=== PATIENT | female | born 1960 | race Caucasian/White ===

== ENCOUNTER → 2016-05-02 | Outpatient (CLI) | payer MEDICARE, OTHER ==
--- NOTE | 2016-05-02 19:53 | PN ---
DATE OF SERVICE: 05/02/2016 This patient is a 56-year-old lady who has been followed in the sleep center for treatment of obstructive sleep apnea/hypopnea syndrome. Recently patient had a home sleep apnea test followed by a CPAP titration. I discussed results of the sleep studies with the patient in detail. She has moderate obstructive sleep apnea. At present she is on treatment with CPAP. She received her new CPAP unit. I checked her CPAP machine. Usage is 25 out of 30 nights for more than 4 hours. Average 4.7 hours per night. Apnea-hypopnea index reading from the machine is only 1.4 for the last month. Patient sleeps better; no snoring; feels better during the day. Greer Sleepiness Scale is 2. CPAP pressure is 15 cm of water. Patient is using RAMP. MEDICATIONS: 1. Clonazepam. 2. Ranitidine. 3. Levothyroxine. 4. Losartan. 5. Simvastatin. 6. Norvasc. 7. ( ) 8. Gabapentin. 9. Ibuprofen. 10. Fluticasone. 11. Vitamin D3. 12. Supplement. PHYSICAL EXAMINATION: Patient is in no distress. VITAL SIGNS: BP 121/68, HR 64, RR 16. Weight 247. Temperature 97.9. Oxygen saturation at room air 96%. HEENT: PERRLA, EOMI. Evaluation of oropharynx showed tongue protrudes midline; low position of soft palate. NECK: Supple. No JVD. Thyroid is not palpable. LUNGS: Clear to percussion and to auscultation. Good air exchange. No wheezing or rhonchi. HEART: S1, S2 regular. No murmurs, gallops or rubs. ABDOMEN: Slightly obese. EXTREMITIES: No clubbing or cyanosis. STAMP REDEMPTION CLERK: Awake, alert, and oriented x3. Cranial nerves 2 to 7 intact. There is no fasciculation or atrophy noted. No focal deficits observed. IMPRESSION: 1. Moderate obstructive sleep apnea-hypopnea syndrome. Apnea-hypopnea index 16.1 with oxygen desaturation to 68%, under control with CPAP at 15 cm of water. Patient has demonstrated good compliance with treatment and is benefiting from treatment. 2. Hypertension. 3. Hypothyroidism. 4. History of swelling of the legs. 5. Low back problems with degenerative disc disease. 6. History of stroke at age of 23. 7. History of seizure disorder; last episode many years ago. 8. Status post cholecystectomy. 9. Status post partial hysterectomy. 10. Seasonal allergies. 11. Status post left breast carcinoma treated by lumpectomy and local radiation therapy in 1998. PLAN: 1. Patient will continue to use her CPAP equipment every night for the whole night. 2. Watching and losing weight. 3. Sleep hygiene with regular time in bed for at least 8 hours. 4. No driving if feeling any sleepiness. 5. Prescription for all necessary CPAP supplies. 6. I will see the patient for follow-up visit in about one year since she had the sleep study, which will be in about 10 months. Thank you very much for allowing me to participate in the management your patient. Sincerely, Dionicio Marcos MD, PhD, FAASM. Diplomat of [place] [employer], Sleep Medicine Board by [place] [employer], [place] [employer]
== END | disposition home or self-care (01) ==
LOC: SLEEP 14:51
PROVIDERS: ATTEND Internal Medicine
DX: G47.33 Obstructive sleep apnea (adult) (pediatric) (principal); I10 Essential (primary) hypertension; E03.9 Hypothyroidism, unspecified; M79.89 Other specified soft tissue disorders; M51.36 Other intervertebral disc degeneration, lumbar region; Z86.73 Personal history of transient ischemic attack (TIA), and cerebral infarction without residual deficits; G40.909 Epilepsy, unspecified, not intractable, without status epilepticus; Z91.09 Other allergy status, other than to drugs and biological substances; Z85.3 Personal history of malignant neoplasm of breast; Z79.899 Other long term (current) drug therapy; Z98.890 Other specified postprocedural states

== ENCOUNTER → 2016-06-18 | Outpatient (CLI) | payer MEDICARE, OTHER ==
--- NOTE | 2016-06-18 19:23 | US ---
EXAMINATION TYPE: US carotid duplex BILAT DATE OF EXAM: 06/18/2016 5:21 PM COMPARISON: NONE CLINICAL HISTORY: Z86.73 Personal history of transient ischemic attack. EXAM MEASUREMENTS: RIGHT: Peak Systolic Velocity (PSV) cm/sec ----- Right CCA: 90.3 ----- Right ICA: 75.8 ----- Right ECA: 169.8 ICA/CCA ratio: 0.8 RIGHT: End Diastole cm/sec ----- Right CCA: 22.5 ----- Right ICA: 19.2 ----- Right ECA: 19.2 LEFT: Peak Systolic Velocity (PSV) cm/sec ----- Left CCA: 84.5 ----- Left ICA: 98.3 ----- Left ECA: 86.6 ICA/CCA ratio: 1.2 LEFT: End Diastole cm/sec ----- Left CCA: 15.6 ----- Left ICA: 27.4 ----- Left ECA: 10.2 VERTEBRALS (direction of flow): Right Vertebral: Antegrade Left Vertebral: Antegrade Minimal plaque visualized bilaterally, elevated velocity visualized in the right ECA IMPRESSION: There is antegrade flow in the vertebral arteries. There is elevated right external patricio tid artery velocity suggestive of more than 50% stenosis. Images and measurements suggest up to 50% s tenosis in both internal carotid arteries. Criteria for Assigning % of Stenosis / Diameter reduction (Estimation based on the indirect measurements of the internal carotid artery velocities (ICA PSV). 1. Normal (no stenosis)=ICA PSV < 125 cm/s: ratio < 2.0: ICA EDV<40 cm/s. 2. Less than 50% stenosis=ICA PSV < 125 cm/s: ratio < 2.0: ICA EDV<40 cm/s. 3. 50 to 69% stenosis=ICA PSV of 125 to 230 cm/s: ration 2.0 ? 4.0: ICA EDV 40-100 cm/s. 4. Greater than 70% stenosis to near occlusion= ICA PSV > 230 cm/s: ratio > 4.0: ICA EDV > 100 cm/s. 5. Near occlusion= ICA PSV velocities may be low or undetectable: variable ratio and ICA EDV. 6. Total occlusion=unable to detect flow.
== END | disposition home or self-care (01) ==
LOC: RADUSWWP 16:30
PROVIDERS: ATTEND Psychiatry & Neurology Neurology
DX: Z86.73 Personal history of transient ischemic attack (TIA), and cerebral infarction without residual deficits (principal)
CPT/HCPCS: 93880

== ENCOUNTER → 2017-02-07 | Outpatient (CLI) | payer MEDICARE, OTHER ==
--- NOTE | 2017-02-07 13:37 | MM ---
Reason for exam: screening (asymptomatic). Last mammogram was performed 1 year ago. History: Patient is postmenopausal, has history of breast cancer at age 38, and has history of endometrial cancer at age 24. Malignant lumpectomy of the left breast, December 12, 1998. Malignant ultrasound-guided core biopsy of the left breast, November 30, 1998. Chemotherapy. Radiation therapy of the left breast. Physical Findings: A clinical breast exam by your physician is recommended on an annual basis and results should be correlated with mammographic findings. MG 3D Screening Mammo W/Cad Bilateral CC and MLO view(s) were taken. Prior study comparison: January 29, 2016, bilateral MG 3d screening mammo w/cad. January 24, 2015, bilateral MG 3d diag mammo w/cad ROSE. The breast tissue is heterogeneously dense. This may lower the sensitivity of mammography. No suspicious abnormality. Post surgical therapy changes on the left breast. No significant changes when compared with prior studies. ASSESSMENT: Benign, BI-RAD 2 RECOMMENDATION: Routine screening mammogram of both breasts in 1 year.
== END | disposition home or self-care (01) ==
LOC: RADMAMWWP 07:38
PROVIDERS: ATTEND Family Medicine
DX: Z12.31 Encounter for screening mammogram for malignant neoplasm of breast (principal); Z80.3 Family history of malignant neoplasm of breast
CPT/HCPCS: 77063; G0202

== ENCOUNTER → 2017-05-29 | Outpatient (CLI) | payer MEDICARE, OTHER ==
--- NOTE | 2017-05-29 12:49 | SFUN ---
SLEEP CENTER FOLLOW UP NOTE DATE OF SERVICE: 05/29/2017 This 57-year-old lady had been followed in sleep center for treatment of obstructive sleep apnea-hypopnea syndrome. Patient successfully continued to use her CPAP equipment every night for the whole night without any significant problems related to mask fitting, pressure and humidification. She sleeps well through the night. She does not have episodes of nocturia. She has before started on treatment with CPAP. She is very satisfied. Lannon Sleepiness Scale is 4. I checked her CPAP unit. Usage is 25/30 nights for more than 4 hours for last month. Usage average is 5.6 hours. Fitting of the mask is 99%. Apnea-hypopnea index is only 1.6, which is absolutely normal. MEDICATIONS: Clonazepam, ranitidine, levothyroxine, losartan, simvastatin, Norvasc, gabapentin, ibuprofen, fluticasone, vitamin D3 supplement. PHYSICAL EXAM: During physical exam, patient in no distress. VITAL SIGNS: BP 111/61, HR 64, RR 16, height 5 feet 6 inches, weight 255, BMI 41.1, temperature 97.4, oxygen saturation room air 97%. HEENT: PERRLA, EOMI. Oropharynx, low position of soft palate. NECK: Supple, no JVD. Thyroid is not palpable. LUNGS: Clear to percussion and to auscultation. Good air exchange. No wheezing or rhonchi. HEART: S1, S2 regular. No murmurs, gallops, or rubs. ABDOMEN: Slightly obese. EXTREMITIES: No clubbing or cyanosis. 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 Cranial nerves 2 to 7 intact. There is no fasciculation or atrophy. noted. No focal deficits observed. IMPRESSION: 1. Moderate obstructive sleep apnea-hypopnea syndrome apnea-hypopnea index 16.1 with oxygen desaturation to 68% on full control with CPAP at the pressure of 15 cm of water. Patient demonstrated great compliance with treatment, benefitting from treatment. 2. Hypertension. 3. Hypothyroidism. 4. History of swelling of the legs. No more swelling of the legs recently. 5. Low back problems with degenerative disc problems. 6. History of stroke at age of 23. 7. History of seizure disorder. Last episode more than 30 years ago. 8. Status post cholecystectomy. 9. Status post partial hysterectomy. 10.Seasonal allergy. 11.Status post left breast cancer treated with lumpectomy and radiation therapy in 1998. PLAN: 1. Patient will continue to use her CPAP equipment every night for the whole night. 2. Losing weight. 3. Sleep hygiene with regular time in bed for at least 8 hours. 4. We will maintain patient prescription for all necessary supplies including mask, tube, filters. 5. Precautions for driving. No driving if feeling sleepiness. Thank you very much for allowing me to participate in management of your patient. Sincerely, Dionicio Marcos MD, PhD, FAASM Diplomat of [place] [employer] [place] [employer] Maitre D of [facility] [place] MMODL / IJN: [id number] /
== END | disposition home or self-care (01) ==
LOC: SLEEP 11:30
PROVIDERS: ATTEND Internal Medicine
DX: G47.33 Obstructive sleep apnea (adult) (pediatric) (principal); I10 Essential (primary) hypertension; E78.5 Hyperlipidemia, unspecified; M51.36 Other intervertebral disc degeneration, lumbar region; J30.2 Other seasonal allergic rhinitis; Z85.3 Personal history of malignant neoplasm of breast; Z90.10 Acquired absence of unspecified breast and nipple; Z92.3 Personal history of irradiation; Z90.710 Acquired absence of both cervix and uterus; Z90.49 Acquired absence of other specified parts of digestive tract; Z86.69 Personal history of other diseases of the nervous system and sense organs; Z87.898 Personal history of other specified conditions; Z99.89 Dependence on other enabling machines and devices; Z79.899 Other long term (current) drug therapy; Z79.1 Long term (current) use of non-steroidal anti-inflammatories (NSAID)

== ENCOUNTER → 2017-08-05 | Outpatient (CLI) | payer MEDICARE, OTHER | END | disposition home or self-care (01) | LOC: LABWHC1 10:15 | PROVIDERS: ATTEND Psychiatry & Neurology Neurology | DX: G40.209 Localization-related (focal) (partial) symptomatic epilepsy and epileptic syndromes with complex partial seizures, not intractable, without status epilepticus (principal) | CPT/HCPCS: 36415; 80177 ==

== ENCOUNTER → 2018-11-30 | Outpatient (CLI) | payer MEDICARE, OTHER ==
--- NOTE | 2018-12-01 11:25 | BD ---
EXAMINATION TYPE: Axial Bone Density DATE OF EXAM: 11/30/2018 COMPARISON: NONE CLINICAL HISTORY: 58-year-old female screening, post menopausal Height: 5'5 1/2 Weight: 248 FRAX RISK QUESTIONS: History of Fracture in Adulthood: y Secondary Osteoporosis: RISK FACTORS HISTORY OF: History of Wrist Fracture: left When: 54 Postmenopausal woman: y MEDICATIONS: Thyroid Medications: Which medication: Levothyroxine How Lon years Additional Medications: blood pressure, cholesterol seizure disorder , metformin , Additional History: cervical cancer, 1981, breast cancer 1998 EXAM MEASUREMENTS: Bone mineral densitometry was performed using the [employer] System. Bone mineral density as measured about the Lumbar spine is: ----- L1-L4(G/cm2): 1.355 T Score Values are as follows: ----- L2: 1.2 ----- L3: 1.3 ----- L4: 1.7 ----- L1-L4: 1.5 Bone mineral density about the R hip (g/cm2): 1.085 Bone mineral density about the L hip (g/cm2): 1.119 T Score values are as follows: -----R Neck: 0.3 -----L Neck: 0.6 -----R Total: 1.5 -----L Total: 2.4 IMPRESSION: Normal (Values between +1 and -1 indicate normal bone mass). Consider repeating this study in 5 year s or sooner if there is some new clinical indication. NOTE: T-SCORE=SD OF THE YOUNG ADULT MEAN.
--- NOTE | 2018-12-02 08:28 | MM ---
Reason for exam: screening (asymptomatic). Last mammogram was performed 1 year and 10 months ago. History: Patient is postmenopausal, has history of breast cancer at age 38, and has history of endometrial cancer at age 24. Malignant lumpectomy of the left breast, December 12, 1998. Malignant ultrasound-guided core biopsy of the left breast, November 30, 1998. Chemotherapy. Radiation therapy of the left breast. Physical Findings: A clinical breast exam by your physician is recommended on an annual basis and results should be correlated with mammographic findings. MG 3D Screening Mammo W/Cad Bilateral CC and MLO view(s) were taken. Prior study comparison: February 07, 2017, bilateral MG 3d screening mammo w/cad. January 29, 2016, bilateral MG 3d screening mammo w/cad. The breast tissue is heterogeneously dense. This may lower the sensitivity of mammography. Post surgical and post therapy changes left breast. Stable benign diffuse punctate calcifications. No significant changes when compared with prior studies. ASSESSMENT: Benign, BI-RAD 2 RECOMMENDATION: Routine screening mammogram of both breasts in 1 year.
== END | disposition home or self-care (01) ==
LOC: RADMAMWWP 14:27
PROVIDERS: ATTEND Family Medicine
DX: Z12.31 Encounter for screening mammogram for malignant neoplasm of breast (principal); Z78.0 Asymptomatic menopausal state
CPT/HCPCS: 77063; 77067; 77080

== ENCOUNTER → 2019-03-30 | Outpatient (CLI) | payer MEDICARE, OTHER | END | disposition home or self-care (01) | LOC: LABWHC1 10:19 | PROVIDERS: ATTEND Psychiatry & Neurology Neurology | DX: G40.209 Localization-related (focal) (partial) symptomatic epilepsy and epileptic syndromes with complex partial seizures, not intractable, without status epilepticus (principal) | CPT/HCPCS: 36415; 80177 ==

== ENCOUNTER 2019-04-23 08:21 | Day surgery (SDC) | payer MEDICARE, OTHER ==
[2019-04-21 10:37] VITALS: BMI 37.9
[~2019-04-23 08:21] MED LIST: LACTATED RINGERS 1,000 ML IV SCH
[2019-04-23 08:40] VITALS: TEMP 97
[2019-04-23] MEDS ORDERED: LIDOCAINE 1% (10MG/ML) FOR IV START INTRADERMA ONE (08:58)
[2019-04-23 09:00] LABS: Glucose,Whole Blood 209 mg/dL (75-99)
[2019-04-23] MEDS ORDERED: PROPOFOL 10 MG/ML 20 ML VIAL IV ONE (09:28)
[2019-04-23] MEDS ORDERED: LIDOCAINE 1% INJ 10MG/ML (20 ML MDV) ONE (09:28)
--- NOTE | 2019-04-23 09:38 | P.GSHP ---
History of Present Illness H&P Date: 04/23/19 Chief Complaint: Colon cancer cancer Patient here today for colonoscopy. She has not had one for the last 10 years or so. No bowel related complaints. No family history of colon cancer Past Medical History Past Medical History: Cancer, Diabetes Mellitus, Hyperlipidemia, Hypertension, Seizure Disorder, Thyroid Disorder Additional Past Medical History / Comment(s): HX LT BREAST AND CERVICAL CANCER. LAST SEIZURE ABOUT 30 YEARS AGO. HAD RT CEREBRAL STROKE AGE 23-NO DEFICITS History of Any Multi-Drug Resistant Organisms: None Reported Past Surgical History: Breast Surgery, Section, Cholecystectomy, Hysterectomy, Orthopedic Surgery, Tonsillectomy Additional Past Surgical History / Comment(s): C-SEC X 2. LT BREAST LUMPECTOMY. COLONOSCOPY. RT KNEE SX Past Anesthesia/Blood Transfusion Reactions: No Reported Reaction Smoking Status: Former smoker - Past Family History Daughter(s) Family Medical History: Deep Vein Thrombosis (DVT) Medications and Allergies Home Medications Medication Instructions Recorded Confirmed Type Atorvastatin [Lipitor] 40 mg PO HS 04/21/19 04/23/19 History Fenofibrate Nanocrystallized 145 mg PO HS 04/21/19 04/23/19 History [Fenofibrate] Levothyroxine Sodium 100 mcg PO DAILY 04/21/19 04/23/19 History Losartan Potassium 50 mg PO DAILY 04/21/19 04/23/19 History Multivitamin [Multivitamins Adult 1 each PO DAILY 04/21/19 04/23/19 History Gummies] amLODIPine BESYLATE 10 mg PO DAILY 04/21/19 04/23/19 History clonazePAM 0.5 mg PO DAILY PRN 04/21/19 04/23/19 History levETIRAcetam [Keppra] 750 mg PO Q12HR 04/21/19 04/23/19 History metFORMIN HCL [Glucophage] 500 mg PO BID 04/21/19 04/23/19 History Allergies Allergy/AdvReac Type Severity Reaction Status Date / Time cephalexin [From Keflex] Allergy Rash/Hives Verified 04/23/19 08:36 etodolac Allergy Unknown Verified 04/23/19 08:36 latex Allergy Rash/Hives Verified 04/23/19 08:36 MARY Inhibitors AdvReac Cough Verified 04/23/19 08:36 Surgical - Exam Vital Signs Temp Pulse Resp BP Pulse Ox 97.0 F L 97 16 165/84 97 04/23/19 08:39 04/23/19 08:39 04/23/19 08:39 04/23/19 08:39 04/23/19 08:39 Physical exam: General: Well-developed, well-nourished HEENT: Normocephalic, sclerae nonicteric Abdomen: Nontender, nondistended Extremities: No edema Neuro: Alert and oriented Results - Labs Abnormal Lab Results - Last 24 Hours (Table) 04/23/19 Range/Units 08:51 POC Glucose (mg/dL) 209 H (75-99) mg/dL Assessment and Plan (1) Colon cancer screening Narrative/Plan: Will proceed with colonoscopy at this time. Current Visit: Yes Status: Acute Code(s): Z12.11 - ENCOUNTER FOR SCREENING FOR MALIGNANT NEOPLASM OF COLON SNOMED Code(s): 075756069
--- NOTE | 2019-04-23 10:21 | P.PCN ---
Date of Procedure: 04/23/19 Procedure(s) Performed: Preoperative Dx: GERD Postoperative Dx: Moderate hiatal hernia, distal esophagitis, gastritis Procedure: EGD with Bx Anesthesia: Sedation Endoscopist: Dr. Kay Specimens: Antrum, esophagitis Endoscopic Procedure: The patient was on the endoscopy table in the left decubitus position. The Olympus gastroscope was inserted into the oropharynx and passed under direct visualization to the region of the third portion of the duodenum. From that point the scope was slowly withdrawn inspecting all surfaces carefully. There were no neoplastic inflammatory or polypoid lesions throughout the duodenum. The pylorus was widely patent. The stomach was carefully inspected. There was stratus present. A biopsy of the antrum took place to rule out H. pylori. Retroflexion revealed a moderate sized hiatal hernia. The patient's esophagus was examined. The patient had subtle narrowing at the GE junction consistent with an early Schatzki's ring. Patient had 3-4 linear erosions of the distal esophagus each measuring 2-3 cm in length. These were non-circumferential. Biopsies of the esophagitis took place. No Mayes's changes were seen. The remainder the esophagus appeared normal. The patient was then taken to the recovery room in stable condition per anesthesia guidelines. Recommendations: Begin prescription antiacid therapy. Patient will require operative repair of the hiatal hernia at the time of the bariatric procedure.
[2019-04-23 10:22] VITALS: BP 137/69; PULSE 71; RESP 18
--- NOTE | 2019-04-23 10:37 | P.PCN ---
Date of Procedure: 04/23/19 Procedure(s) Performed: PREOPERATIVE DIAGNOSIS: Colon cancer screening POSTOPERATIVE DIAGNOSIS: Small sigmoid polyp PROCEDURE: Colonoscopy with snare polypectomy ANESTHESIA: MAC SURGEON: Reed Kay M.D. SPECIMENS: Sigmoid polyp ENDOSCOPIC PROCEDURE: The patient was placed on the endoscopy table in the left decubitus position. The Olympus colonoscope was inserted into the anus and passed under direct visualization to the base of the cecum. The appendiceal orifice was visualized. From that point the scope was slowly withdrawn inspecting all surfaces carefully. There were no neoplastic inflammatory or polypoid lesions throughout the cecum, ascending, transverse, and descending colon. In the sigmoid colon a small polyp was seen and removed using the snare with cautery technique. The remainder of the sigmoid and rectum was normal. There is no visible diverticulosis. Digital rectal examination was normal. The patient was taken to the recovery room in stable condition per anesthesia guidelines. RECOMMENDATIONS: Await biopsy results. Anticipate follow-up colonoscopy 5 years.
== END 2019-04-23 10:38 | disposition home or self-care (01) ==
LOC: ORWHC2ENDO 08:21
PROVIDERS: ATTEND Surgery
DX: Z12.11 Encounter for screening for malignant neoplasm of colon (principal); K63.5 Polyp of colon; I10 Essential (primary) hypertension; E78.5 Hyperlipidemia, unspecified; E11.9 Type 2 diabetes mellitus without complications; G40.909 Epilepsy, unspecified, not intractable, without status epilepticus; E07.9 Disorder of thyroid, unspecified; I65.29 Occlusion and stenosis of unspecified carotid artery; E66.9 Obesity, unspecified; Z68.39 Body mass index [BMI] 39.0-39.9, adult; Z85.3 Personal history of malignant neoplasm of breast; I69.30 Unspecified sequelae of cerebral infarction; Z85.41 Personal history of malignant neoplasm of cervix uteri; Z90.49 Acquired absence of other specified parts of digestive tract; Z90.710 Acquired absence of both cervix and uterus; Z98.890 Other specified postprocedural states; Z87.891 Personal history of nicotine dependence; Z97.2 Presence of dental prosthetic device (complete) (partial); Z82.49 Family history of ischemic heart disease and other diseases of the circulatory system; G47.33 Obstructive sleep apnea (adult) (pediatric); Z99.89 Dependence on other enabling machines and devices; Z79.890 Hormone replacement therapy; Z79.899 Other long term (current) drug therapy; Z79.84 Long term (current) use of oral hypoglycemic drugs; Z88.8 Allergy status to other drugs, medicaments and biological substances; Z88.6 Allergy status to analgesic agent; Z88.1 Allergy status to other antibiotic agents; Z91.040 Latex allergy status
CPT/HCPCS: 88305; 45385; 43239; J2001; J2704

== ENCOUNTER → 2019-12-30 | Outpatient (CLI) | payer MEDICARE, OTHER ==
--- NOTE | 2019-12-31 03:03 | SFUN ---
SLEEP CENTER FOLLOW UP NOTE DATE OF SERVICE: 12/30/2019 A 59-year-old lady has been followed in Sleep Center for treatment of obstructive sleep apnea-hypopnea syndrome. Previous visit was at the beginning of 2018. The patient continued to use her CPAP equipment every night according to her sleeps well. Shelby Sleepiness Scale today is 3. Recently, patient did not use her machine regularly because of family problems. I checked her CPAP unit. CPAP pressure of 15 cm of water. Usage is for the last month 11 out of 30 nights more than 4 hours. Average usage 2.7 hours. Mask fit 100%. Apnea- hypopnea index is 2.3. MEDICATIONS: Metformin 500 mg twice a day, glimepiride twice a day, Keppra twice a day, fenofibrate once a day, aspirin 81 mg once a day, clonazepam 2 mg as needed. PHYSICAL EXAMINATION: GENERAL: Patient in no distress. VITAL SIGNS: BP 126/84, HR 56, RR 16, height 5 feet 6-1/2 inches, weight 244, BMI 38.7. Patient lost about 11 pounds since previous visit. Temperature 97.4. Oxygen saturation on room air 98%. HEENT: PERRLA, EOMI. Oropharynx low position of soft palate. NECK: Supple, no JVD. Thyroid is not palpable. LUNGS: Clear to percussion and to auscultation. Good air exchange. No wheezing or rhonchi. HEART: S1, S2 regular. No murmurs, gallops, or rubs. ABDOMEN: Obese. EXTREMITIES: No clubbing or cyanosis. MEDICAL MANAGER: Awake, alert, and oriented X3. Cranial nerves 2 to 7 intact. There is no fasciculation or atrophy. noted. No focal deficits observed. IMPRESSION: 1. Moderate obstructive sleep apnea-hypopnea syndrome, AHI 16.1 with significant oxygen desaturation. Respiration fully normal while on treatment with CPAP. 2. Hypertension. 3. Hypothyroidism. 4. History of stroke at age of 23. 5. History of seizure disorder, last episode many years ago. 6. Status post cholecystectomy. 7. Status post partial hysterectomy. 8. Seasonal allergy. 9. Status post left breast cancer, treated with lumpectomy and radiation therapy in 1998. I again discussed with the patient necessity to use CPAP equipment every night for the whole night and she promised to follow recommendations. PLAN: 1. Patient will continue to use PAP equipment every night for the whole night. 2. Sleep hygiene with regular time in bed for at least 7-1/2 to 8 hours. 3. Precautions related to driving. No driving if feeling sleepiness. 4. I will maintain all necessary prescription for PAP supplies including mask, tube, filters. 5. Watching weight. 6. No driving if feeling sleepiness. 7. Follow-up visit in 6 months or earlier if patient has any problems. Thank you very much for allowing me to participate in management of your patient. Sincerely, Dionicio Marcos MD, PhD, FAASM Diplomat of [place] [employer] [place] [employer] Developer of [facility] [place] MMODL / IJN: [id number] /
== END | disposition home or self-care (01) ==
LOC: SLEEP 15:19
PROVIDERS: ATTEND Internal Medicine
DX: G47.33 Obstructive sleep apnea (adult) (pediatric) (principal); I10 Essential (primary) hypertension; E03.9 Hypothyroidism, unspecified; J30.2 Other seasonal allergic rhinitis; Z86.73 Personal history of transient ischemic attack (TIA), and cerebral infarction without residual deficits; Z86.69 Personal history of other diseases of the nervous system and sense organs; Z90.49 Acquired absence of other specified parts of digestive tract; Z90.710 Acquired absence of both cervix and uterus; Z85.3 Personal history of malignant neoplasm of breast; Z99.89 Dependence on other enabling machines and devices; Z79.84 Long term (current) use of oral hypoglycemic drugs; Z79.82 Long term (current) use of aspirin; Z79.899 Other long term (current) drug therapy

== ENCOUNTER → 2020-03-16 | Outpatient (CLI) | payer MEDICARE, OTHER ==
--- NOTE | 2020-03-17 10:37 | MM ---
Reason for exam: additional evaluation requested from prior study. Last mammogram was performed 1 year and 3 months ago. History: Patient is postmenopausal, has history of breast cancer at age 38, and has history of endometrial cancer at age 24. Malignant lumpectomy of the left breast, December 12, 1998. Malignant ultrasound-guided core biopsy of the left breast, November 30, 1998. Chemotherapy. Radiation therapy of the left breast. Physical Findings: Nurse did not find any significant physical abnormalities on exam. MG 3D Diag Mammo W/Cad ROSE Bilateral CC and MLO view(s) were taken. Prior study comparison: November 30, 2018, bilateral MG 3d screening mammo w/cad. February 07, 2017, bilateral MG 3d screening mammo w/cad. The breast tissue is heterogeneously dense. This may lower the sensitivity of mammography. Asymmetric breast tissue greater in the right breast. Post surgical changes left breast. No significant new findings when compared with previous films. These results were verbally communicated with the patient and result sheet given to the patient on 03/16/20. ASSESSMENT: Benign, BI-RAD 2 RECOMMENDATION: Follow-up diagnostic mammogram of both breasts in 1 year.
== END | disposition home or self-care (01) ==
LOC: RADMAMWWP 12:37
PROVIDERS: ATTEND Family Medicine
DX: Z08 Encounter for follow-up examination after completed treatment for malignant neoplasm (principal); Z85.3 Personal history of malignant neoplasm of breast
CPT/HCPCS: 77066; G0279; 77062

== ENCOUNTER → 2020-04-13 | Outpatient (CLI) | payer MEDICARE, OTHER | END | disposition home or self-care (01) | LOC: LABWHC1 10:45 | PROVIDERS: ATTEND Psychiatry & Neurology Neurology | DX: Z53.9 Procedure and treatment not carried out, unspecified reason (principal) | CPT/HCPCS: 36415; 80177 ==

== ENCOUNTER → 2021-04-26 | Outpatient (CLI) | payer MEDICARE, OTHER ==
--- NOTE | 2021-04-26 11:39 | MM ---
Reason for exam: additional evaluation requested from prior study. Last mammogram was performed 1 year and 1 month ago. History: Patient is postmenopausal, has history of breast cancer at age 38, and has history of endometrial cancer at age 24. Malignant lumpectomy of the left breast, December 12, 1998. Malignant ultrasound-guided core biopsy of the left breast, November 30, 1998. Chemotherapy. Radiation therapy of the left breast. Physical Findings: A clinical breast exam by your physician is recommended on an annual basis and results should be correlated with mammographic findings. MG 3D Diag Mammo W/Cad ROSE Bilateral CC and MLO view(s) were taken. Prior study comparison: March 16, 2020, bilateral MG 3d diag mammo w/cad ROSE. November 30, 2018, bilateral MG 3d screening mammo w/cad. The breast tissue is heterogeneously dense. This may lower the sensitivity of mammography. Stable benign calcifications. Stable post lumpectomy changes in the left breast. No significant new findings when compared with previous films. These results were verbally communicated with the patient and result sheet given to the patient on 04/26/21. ASSESSMENT: Benign, BI-RAD 2 RECOMMENDATION: Follow-up diagnostic mammogram of both breasts in 1 year.
== END | disposition home or self-care (01) ==
LOC: RADMAMWWP 10:55
PROVIDERS: ATTEND Family Medicine
DX: R92.8 Other abnormal and inconclusive findings on diagnostic imaging of breast (principal)
CPT/HCPCS: 77066; G0279; 77062

== ENCOUNTER → 2021-10-26 | Outpatient (CLI) | payer MEDICARE, OTHER ==
--- NOTE | 2021-10-26 12:11 | CA ---
Transthoracic Echo Report Name: Candy Glass Age: 61 Gender: F : 1960 Exam Date: 10/26/2021 10:02 Exam Location: [facility] Ht (in): 66 Wt (lb): 240 Ordering Physician: Rajan Barraza MD Attending/Referring Phys: Eduarda Carrera MD Music Publisher Alysia Santiago RDCS Procedure CPT: Indications: I44.7 L bundle branch block, I10 hypertension Cardiac Hx: Technical Quality: Fair Contrast 1: Total Dose (mL): Contrast 2: Total Dose (mL): MEASUREMENTS (Male / Female) Normal Values 2D ECHO LV Diastolic Diameter PLAX 4.5 cm 4.2 - 5.9 / 3.9 - 5.3 cm LV Systolic Diameter PLAX 2.9 cm IVS Diastolic Thickness 1.0 cm 0.6 - 1.0 / 0.6 - 0.9 cm LVPW Diastolic Thickness 1.2 cm 0.6 - 1.0 / 0.6 - 0.9 cm LV Relative Wall Thickness 0.5 RV Internal Dim ED PLAX 2.7 cm LA Volume 58.2 cm??? 18 - 58 / 22 - 52 cm??? M-MODE Aortic Root Diameter MM 3.3 cm LA Systolic Diameter MM 3.5 cm LA Ao Ratio MM 1.1 AV Cusp Separation MM 1.7 cm DOPPLER AV Peak Velocity 146.0 cm/s AV Peak Gradient 8.5 mmHg LVOT Peak Velocity 94.3 cm/s LVOT Peak Gradient 3.6 mmHg MV Area PHT 4.2 cm??? Mitral E Point Velocity 71.6 cm/s Mitral A Point Velocity 74.2 cm/s Mitral E to A Ratio 1.0 MV Deceleration Time 181.3 ms TR Peak Velocity 235.6 cm/s TR Peak Gradient 22.2 mmHg Right Ventricular Systolic Press 27.2 mmHg FINDINGS Left Ventricle Mildly increased left ventricular wall thickness. Normal left ventricular systolic function with no obvious regional wall motion abnormalities. Left ventricular ejection fraction is estimated at 55 %. Abnormal septal motion consistent with left bundle branch block. Right Ventricle Normal right ventricular size and function. Normal right ventricular global systolic function. Right Atrium Normal right atrial size. Left Atrium Mildly increased left atrial volume. Mitral Valve Structurally normal mitral valve. No mitral stenosis. Mild mitral regurgitation. Aortic Valve Trileaflet aortic valve. No aortic stenosis. Aortic valve sclerosis. No aortic regurgitation. Tricuspid Valve Structurally normal tricuspid valve. Mild tricuspid regurgitation. Pulmonic Valve Structurally normal pulmonic valve. No pulmonic regurgitation. Pericardium No pericardial effusion. Aorta Normal size aortic root and proximal ascending aorta. CONCLUSIONS Left ventricle systolic function about 50% Atypical septal motion secondary to bundle branch block Previewed by: Dr. Juan Braden MD (Electronically Signed) Final Date: 26 October 2021 12:10
== END | disposition home or self-care (01) ==
LOC: RADECHMAIN 09:48
PROVIDERS: ATTEND Family Medicine
DX: I44.7 Left bundle-branch block, unspecified (principal); I10 Essential (primary) hypertension
CPT/HCPCS: 93306

== ENCOUNTER → 2021-11-20 | Outpatient (CLI) | payer MEDICARE | LOC: LABWHC1 08:37 | PROVIDERS: ATTEND Psychiatry & Neurology Neurology | DX: G40.209 Localization-related (focal) (partial) symptomatic epilepsy and epileptic syndromes with complex partial seizures, not intractable, without status epilepticus (principal) | CPT/HCPCS: 36415; 80177 ==

== ENCOUNTER → 2021-11-28 | Outpatient (CLI) | payer MEDICARE, OTHER | END | disposition home or self-care (01) | LOC: RADNMMAIN 08:24 | PROVIDERS: ATTEND Family Medicine | DX: Z53.9 Procedure and treatment not carried out, unspecified reason (principal) ==

== ENCOUNTER → 2022-02-25 | Outpatient (CLI) | payer MEDICARE, OTHER ==
--- NOTE | 2022-02-25 10:10 | MM ---
Reason for Exam: Clinical finding. Last screening mammogram was performed 10 month(s) ago. Patient History: Menarche at age 12. First Full-Term at age 23. Hysterectomy at age 27. Postmenopausal. Breast cancer, age 38. Endometrial cancer, age 24. 12/12/1998, Malignant Lumpectomy on the left side. 11/30/1998, Malignant Ultrasound-Guided Core Biopsy on the left side. Radiation Therapy, left. Chemotherapy. Tissue Density: The breast tissue is heterogeneously dense. This may lower the sensitivity of mammography. Findings: Analyzed By CAD. Stable benign calcifications. Redemonstration of post lumpectomy changes in the left breast. No new suspicious masses within the right breast. Increased density at the upper outer left breast at the patient's region of palpable abnormality, middle depth. Overall Assessment: Incomplete: need additional imaging evaluation, BI-RAD 0 Management: Diagnostic Breast Ultrasound of the left breast. A clinical breast exam by your physician is recommended on an annual basis and results should be correlated with mammographic findings. This exam should not preclude additional follow-up of suspicious palpable abnormalities. Results were given to the patient verbally at the time of exam. Electronically signed and approved by: Ralph Parks D.O.
--- NOTE | 2022-02-25 10:33 | USB ---
Reason for Exam: Clinical finding. Patient History: Menarche at age 12. First Full-Term at age 23. Hysterectomy at age 27. Postmenopausal. Breast cancer, age 38. Endometrial cancer, age 24. 12/12/1998, Malignant Lumpectomy on the left side. 11/30/1998, Malignant Ultrasound-Guided Core Biopsy on the left side. Radiation Therapy, left. Chemotherapy. Prior Study Comparison: 11/30/2018 Bilateral Screening Mammogram, [facility]. 03/16/2020 Bilateral Diagnostic Mammogram, [facility]. 04/26/2021 Bilateral Diagnostic Mammogram, [facility]. Findings: The upper outer quadrant of the left breast, the area of palpable concern of the left breast, the axilla of the left breast and the retroareolar of the left breast were scanned. Targeted ultrasound of left breast at 12-3 o'clock was performed with additional evaluation the nipple and axilla.. There is a hypoechoic irregular mass with angular margins within the left breast 1:00 measuring 1.3 x 3.0 x 2.3 cm with internal color flow. This corresponds to palpable abnormality. Additionally there is a round hypoechoic ovoid mass within the left breast at 2:00 3 cm from the nipple measuring 0.6 x 0.4 x 0.4 cm without posterior acoustic features or internal color flow. Biopsy of both masses are recommended. Overall Assessment: Suspicious, BI-RAD 4 Management: Ultrasound Core Biopsy of the left breast. A clinical breast exam by your physician is recommended on an annual basis and results should be correlated with mammographic findings. This exam should not preclude additional follow-up of suspicious palpable abnormalities. Results were given to the patient verbally at the time of exam. Electronically signed and approved by: Ralph Parks D.O.
== END | disposition home or self-care (01) ==
LOC: RADMAMWWP 09:35
PROVIDERS: ATTEND Family Medicine
DX: N63.21 Unspecified lump in the left breast, upper outer quadrant (principal); Z85.3 Personal history of malignant neoplasm of breast; Z78.0 Asymptomatic menopausal state; Z98.890 Other specified postprocedural states
CPT/HCPCS: 77066; 76642; G0279; 77062

== ENCOUNTER → 2022-05-31 | Outpatient (CLI) | payer MEDICARE, OTHER ==
[2022-05-31 13:48] VITALS: BP 152/77; PULSE 76; RESP 17; TEMP 97.9
--- NOTE | 2022-05-31 14:11 | P.PN ---
Subjective Progress Note Date: 05/31/22 left breast stage II invasive ductal cancer 04-19-22 Candy is a 62 year old white female seen in consultation for Dr. Bolton regarding a biopsy proven left breast tripple (-) Grade 3 invasive ductal cancer. The Lesion is 2.7 cm on ultrasound. She had a bilateral mammogram on 02-25-22. No lesions of concern were noted in the right breast. She had a left breast ultrasound done on 02-25-22 This showed two lesions in the left breast one measuring o.6 cm and the other 2.3 cm. When reviewed with Dr. Melendez it was felt these were the same lesion. Biopsy of the lesion was (+) for invasive ductal cancer. The patient felt a lump in her breast first in January, it did not change in size. Her last mammogram was one year ago. She is not complaining of any skin changes or nipple discharge in her breast. She had a left breast lumpectomy and and AND when she was 38. She had radiation and chemotherapy. She did not take any hormone therapy. Case presented at tumor board on 04-05-22 Note Medical oncology reviewed 04-11-22 Dr. Sully Fernández; patient to receive devang- adjuvant chemotherapy [facility] Note radiation oncology reviewed 03-28-[address] results pending port- a -cath to be placed next week probable mastectomy and SNB after chemotherapy 06-02-21 She started chemotherapy on April 11. She has 1 more treatment of a carboplatin/paclitaxell/keytruda. Since that time the tumor has shrunk so that she can no longer feel it. Her treatment regimen is per [facility]ynote 522 protocol: Carboplatin/pa clitaxel/keytruda for 4 cycles followed by Adriamycin/cyclophosphamide/Keytruda for 4 cycles CAffiene: 2-3 cups/day nicotien: none chocolate: none BCP: cervical cancer, used them from -; she had a partial hysterectomy at 24 Family History: mother: lung cancer, endometiral cancer sister: uterine cancer patient:breast and cervical cancer materal grandfather: SCC Hormonal History: menarche: 11 , breast fed: no, age at first biirth: 23 menopause: hysterectomy at 23, left ovariies Surgical History: gallbaldder left breast lumpectomy and axillary node diesection hysterectomy right knee surgery 2 C-sections tonsillectomy Medical History: CVA at 23 (blood clot, ? 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 liver enzymes elevated seizure disorder Social History: nicotine: none alcohol: none drugs: none - Constitutional Constitutional: Denies chills, Denies fever - EENT Eyes: denies blurred vision, denies pain Ears: deny: decreased hearing, tinnitus Ears, nose, mouth and throat: Denies headache, Denies sore throat - Breasts Breasts: bilateral: as per HPI - Cardiovascular Cardiovascular: Denies chest pain, Denies shortness of breath - Respiratory Respiratory: Denies cough - Gastrointestinal Gastrointestinal: Denies abdominal pain, Denies diarrhea, Denies nausea, Denies vomiting - Genitourinary (Female) Genitourinary: Denies dysuria, Denies hematuria - Menstruation Menstruation: Reports post hysterectomy, Reports postmenopausal - Musculoskeletal Comment: arthritis, DJD - Integumentary Comment: sees renal dialysis rn no cancer Integumentary: Reports pruritus - Neurological Neurological: Reports as per HPI - Psychiatric Psychiatric: Reports anxiety, Reports depression - Endocrine Comment: diabetes - Hematologic/Lymphatic Comment: aspirin - Allergic/Immunologic Allergic/Immunologic: Reports seasonal allergies Past Medical History Past Medical History: Cancer, Diabetes Mellitus, Hyperlipidemia, Hypertension, Seizure Disorder, Thyroid Disorder Additional Past Medical History / Comment(s): HX LT BREAST 1999 AND CERVICAL CANCER. LAST SEIZURE ABOUT 30 YEARS AGO. HAD RT CEREBRAL STROKE AGE 23-NO DEFICITS History of Any Multi-Drug Resistant Organisms: None Reported Past Surgical History: Breast Surgery, Section, Cholecystectomy, Hysterectomy, Orthopedic Surgery, Tonsillectomy Additional Past Surgical History / Comment(s): C-SEC X 2. LT BREAST LUMPECTOMY. COLONOSCOPY. RT KNEE SX Past Anesthesia/Blood Transfusion Reactions: No Reported Reaction Past Psychological History: Anxiety Smoking Status: Former smoker Past Alcohol Use History: None Reported Additional Past Alcohol Use History / Comment(s): QUIT SMOKING AT AGE 23 Past Drug Use History: None Reported - Past Family History Daughter(s) Family Medical History: Deep Vein Thrombosis (DVT) Medications and Allergies Home Medications Medication Instructions Recorded Confirmed Type Atorvastatin [Lipitor] 40 mg PO HS 04/21/19 03/21/22 History Fenofibrate Nanocrystallized 145 mg PO HS 04/21/19 03/21/22 History [Fenofibrate] Levothyroxine Sodium 100 mcg PO DAILY 04/21/19 03/21/22 History Losartan Potassium 50 mg PO DAILY 04/21/19 03/21/22 History Multivitamin [Multivitamins Adult 1 each PO DAILY 04/21/19 03/21/22 History Gummies] amLODIPine BESYLATE 10 mg PO DAILY 04/21/19 03/21/22 History clonazePAM 0.5 mg PO DAILY PRN 04/21/19 03/21/22 History levETIRAcetam [Keppra] 750 mg PO Q12HR 04/21/19 03/21/22 History metFORMIN HCL [Glucophage] 500 mg PO BID 04/21/19 03/21/22 History Aspirin [Adult Low Dose Aspirin EC] 81 mg PO DAILY 02/25/22 03/21/22 History Dulaglutide [Trulicity] 0.75 mg SQ WEEKLY 02/25/22 03/21/22 History Allergies Allergy/AdvReac Type Severity Reaction Status Date / Time cephalexin [From Keflex] Allergy Rash/Hives Verified 03/21/22 12:21 etodolac Allergy Unknown Verified 03/21/22 12:21 latex Allergy Rash/Hives Verified 03/21/22 12:21 MARY Inhibitors AdvReac Cough Verified 03/21/22 12:21 Objective - Vital Signs Vital signs: Vital Signs Temp 97.9 F 05/31/22 13:46 Pulse 76 05/31/22 13:46 Resp 17 05/31/22 13:46 BP 152/77 05/31/22 13:46 Pulse Ox 98 05/31/22 13:46 FiO2 Intake & Output 05/30/22 05/31/22 05/31/22 18:59 06:59 18:59 Weight 106.141 kg - Constitutional General appearance: Present: cooperative - EENT Eyes: Present: EOMI ENT: Present: hearing grossly normal - Neck Neck: Present: normal ROM - Respiratory Respiratory: bilateral: CTA - Cardiovascular Rhythm: regular Heart sounds: normal: S1, S2 - Gastrointestinal General gastrointestinal: Present: soft - Integumentary Integumentary: Present: normal turgor - Musculoskeletal Musculoskeletal: Present: gait normal - Psychiatric Psychiatric: Present: A&O x's 3, appropriate affect, intact judgment & insight - Additional findings Additional findings: Breast Exam: BRA: Right breast larger than left breast, patient wears a 38 B Inspection: Left breast smaller than right breast bilateral grade 2 ptosis Palpation: Right breast: Multi-positional exam fibrocystic changes no discrete dominant masses or nodules of concern Right axilla: No adenopathy of concern Left breast: Fullness in the upper outer quadrant less distinct mass Left axilla: No adenopathy of concern Assessment and Plan Assessment: Impression: left breast recurrent invasive ductal cancer G3 [id number] Initial left breast cancer was at the age of 38 she underwent a lumpectomy/radiation therapy/and chemotherapy Plan: 1. presentation of case at tumor board done 03-26-22 2. Continue chemotherapy 3. PET scan on no evidence of metastatic disease 5. genetic testing is pending 6. follow up in 3 months CC: Ese Hampton NP, Dr. Bolton
== END ==
LOC: WWCWWP 12:54
PROVIDERS: ATTEND Surgery
DX: C50.412 Malignant neoplasm of upper-outer quadrant of left female breast (principal); E11.9 Type 2 diabetes mellitus without complications; E78.5 Hyperlipidemia, unspecified; G40.909 Epilepsy, unspecified, not intractable, without status epilepticus; I10 Essential (primary) hypertension; Z51.11 Encounter for antineoplastic chemotherapy; Z79.82 Long term (current) use of aspirin; Z79.84 Long term (current) use of oral hypoglycemic drugs; Z80.1 Family history of malignant neoplasm of trachea, bronchus and lung; Z85.3 Personal history of malignant neoplasm of breast; Z85.41 Personal history of malignant neoplasm of cervix uteri; Z86.73 Personal history of transient ischemic attack (TIA), and cerebral infarction without residual deficits; Z87.891 Personal history of nicotine dependence; Z88.1 Allergy status to other antibiotic agents; Z90.49 Acquired absence of other specified parts of digestive tract; Z91.040 Latex allergy status; Z92.21 Personal history of antineoplastic chemotherapy; Z92.3 Personal history of irradiation; Z88.6 Allergy status to analgesic agent; Z88.8 Allergy status to other drugs, medicaments and biological substances; Z80.3 Family history of malignant neoplasm of breast

== ENCOUNTER → 2022-10-01 | Outpatient (CLI) | payer MEDICARE, OTHER ==
--- NOTE | 2022-10-01 10:15 | USB ---
Reason for Exam: Follow-up at short interval from prior study. Patient History: Menarche at age 12. First Full-Term at age 23. Hysterectomy at age 27. Postmenopausal. Breast cancer, age 38. Endometrial cancer, age 24. Breast cancer, left, age 62. 03/13/2022, Malignant US biopsy breast VAD LT on the left side. 12/12/1998, Malignant Lumpectomy on the left side. 11/30/1998, Malignant Ultrasound-Guided Core Biopsy on the left side. Radiation Therapy, left. Chemotherapy. Technique: Method: Targeted. Prior Study Comparison: 04/26/2021 Bilateral Diagnostic Mammogram, [facility]. 02/25/2022 Bilateral MG 3D diag mammo w/cad ROSE, [facility]. 03/13/2022 Left MG diagnostic mammo LT wo CAD., [facility]. Findings: The lateral section of the breast of the left breast, the axilla of the left breast and the retroareolar of the left breast were scanned. Previously sampled malignant mass at the left 1:00 position 1 cm from the nipple has for the most part resolved. Now identified is a clip with a small area of surrounding hypoechoic attenuation measuring about 1.0 x 2.3 cm. Nodule seen previously at the left 2:00 position is not identified at this time. Overall Assessment: Known biopsy proven malignancy, BI-RAD 6 Management: Surgical Consultation of the left breast. A clinical breast exam by your physician is recommended on an annual basis and results should be correlated with mammographic findings. This exam should not preclude additional follow-up of suspicious palpable abnormalities. Results were given to the patient verbally at the time of exam. Electronically signed and approved by: Tano Dempsey M.D. Radiologis
== END | disposition home or self-care (01) ==
LOC: RADUSWWP 09:16
PROVIDERS: ATTEND Internal Medicine
DX: R92.8 Other abnormal and inconclusive findings on diagnostic imaging of breast (principal); Z78.0 Asymptomatic menopausal state; Z85.3 Personal history of malignant neoplasm of breast

== ENCOUNTER 2022-10-29 09:38 | Day surgery (SDC) | payer MEDICARE, OTHER ==
[2022-10-24 16:11] VITALS: BMI 32.1
[~2022-10-29 09:38] MED LIST changes: +ACETAMINOPHEN TAB 500 MG TAB PO PRN; +DEXAMETHASONE SOD PHOSPHATE 4 MG/ML 1 ML VIAL IV ONE; +HEPARIN SODIUM,PORCINE/PF 5,000 UNIT/0.5 ML SYRINGE SQ PRN; +HYDROmorphone 0.5 MG/0.5 ML SYRINGE IVP PRN; +MIDAZOLAM 2 MG/2 ML VIAL IV PRN; +ONDANSETRON 4 MG/2 ML VIAL IVP ONE; +SCOPOLAMINE 1 MG/72 HR PATCH TRANSDERM ONE
[2022-10-29 10:27] LABS: Glucose,Whole Blood 103 mg/dL (70-110)
[2022-10-29 10:31] LABS: Basophils % (A) 1 %; Eosinophils # (A) 1.3 k/uL (0-0.7); Eosinophils % (A) 18 %; HCT 35.2 % (34.0-46.0); HGB 11.9 gm/dL (11.4-16.0); Lymphocytes % (A) 27 %; MCH 34.1 pg (25.0-35.0); MCHC 33.9 g/dL (31.0-37.0); MCV 100.4 fL (80.0-100.0); Macrocytosis Slight; Mean Platelet Volume 8.7; Monocytes # (A) 0.4 k/uL (0-1.0); Monocytes % (A) 6 %; Neutrophils # (A) 3.6 k/uL (1.3-7.7); Neutrophils % (A) 48 %; Platelet Count 159 k/uL (150-450); RBC 3.51 m/uL (3.80-5.40); RDW 15.7 % (11.5-15.5); WBC 7.4 k/uL (3.8-10.6)
[2022-10-29 10:40] LABS: ALT 34 U/L (4-34); AST 62 U/L (14-36); African American GFR (CKD) 75 (>60 ml/min/1.73 sqM); Albumin 4.4 g/dL (3.5-5.0); Alkaline Phosphatase 45 U/L (38-126); Anion Gap 10 mmol/L; Blood Urea Nitrogen 16 mg/dL (7-17); Calcium 10.3 mg/dL (8.4-10.2); Carbon Dioxide 20 mmol/L (22-30); Chloride 111 mmol/L (98-107); Glucose 116 mg/dL (74-99); Non-African American GFR(CKD) 65 (>60 ml/min/1.73 sqM); Potassium 3.8 mmol/L (3.5-5.1); Sodium 141 mmol/L (137-145); Total Bilirubin 0.8 mg/dL (0.2-1.3)
--- NOTE | 2022-10-29 12:05 | P.NAPBC ---
NAPBC Queries - NAPBC Queries Was patient's case review presented at [facility] tumor board? If no, comment.: Yes Was patient's pathology reviewed at [facility]? If no, comment.: Yes Was breast conservation surgery offered? If no, comment.: No (secoon cancer in the left breast, genetic varriant increased risk) Was sentinel node biopsy offered? If no, comment.: Yes Was diagnosis confirmed by percutaneous core biopsy? If no, comment.: Yes Is patient mastectomy patient?: Yes Was a preop referral to reconstructive surgeon offered?: No (patent given option of seeing plastic surgeon and she declined) Clinical Stage: [id number] stage II left breat invasive ductal cancer
--- NOTE | 2022-10-29 12:38 | NM ---
EXAMINATION TYPE: NM sentinel node injection DATE OF EXAM: 10/29/2022 COMPARISON: NONE INDICATION: Abnormal mammogram. Informed consent was obtained. A timeout was performed. The area around the left nipple was cleansed with alcohol. In a single dose, a total of 513 uCi Bibi hnetium 99m Tilmanocept was injected. The patient tolerated the procedure very well. IMPRESSION: 1. Successful injection for sentinel node evaluation.
[2022-10-29] MEDS ORDERED: SUCCINYLCHOLINE CHLORIDE 200 MG/10 ML VIAL IV ONE (12:43)
[2022-10-29] MEDS ORDERED: MIDAZOLAM 2 MG/2 ML VIAL ONE (12:43)
[2022-10-29] MEDS ORDERED: fentaNYL (PF) 50 MCG/ML 2 ML AMP ONE (12:43)
[2022-10-29] MEDS ORDERED: HYDROmorphone (PF) 1 MG/ML ONE (12:43)
[2022-10-29] MEDS ORDERED: PHENYLEPHRINE-0.9% NACL SYG 1,000 MCG/10 ML SYRINGE ONE (12:43)
[2022-10-29] MEDS ORDERED: LIDOCAINE 2% INJ 20 MG/ML (2 ML VIAL) ONE (12:43)
[2022-10-29] MEDS ORDERED: PROPOFOL 10 MG/ML 20 ML VIAL IV ONE (12:43)
--- NOTE | 2022-10-29 13:05 | P.OP ---
Date of Procedure: 10/29/22 Preoperative Diagnosis: History of breast cancer Postoperative Diagnosis: History of breast cancer Procedure(s) Performed: Removal of right subclavian Port-A-Cath Anesthesia: NATI Surgeon: Franco Arreola Estimated Blood Loss (ml): 5 Pathology: none sent Condition: stable Disposition: PACU Description of Procedure: The patient's placed the operative table in supine position. She received general anesthesia. Her right chest was prepped and draped usual sterile fashion. The skin was incised at the port site. Then using blunt and sharp dissection with cautery the Port-A-Cath was withdrawn. There is no bleeding seen. The skin was closed interrupted 3-0 Monocryl suture. Dermabond was applied. Patient top she will she was sent to recovery room in stable condition.
--- NOTE | 2022-10-29 13:06 | P.GSHP ---
History of Present Illness H&P Date: 10/29/22 Chief Complaint: History of breast cancer This a 62-year-old female who presents for removal of Port-A-Cath. Patient is having left sentinel node lumpectomy performed by Dr. Amy vigil. Patient presents for removal of her Port-A-Cath synchronously. Past Medical History Past Medical History: Asthma, Cancer, CVA/TIA, Diabetes Mellitus, Hyperlipidemia, Hypertension, Osteoarthritis (OA), Renal Disease, Seizure Disorder, Sleep Apnea/CPAP/BIPAP, Thyroid Disorder Additional Past Medical History / Comment(s): HX LT BREAST 1998 AND CERVICAL CANCER 1991 return of breast cancer 03/04. LBBB per [facility] [facility]. U/S done as well to confirm. LAST SEIZURE ABOUT 30 YEARS AGO. HAD RT CEREBRAL STROKE AGE 23-NO DEFICITS. asthma as child. stage 2 kidney failure. liver enzymes a little elevated. arthritis to back and legs. DDD. CPAP, LAST CHEMO [place] SEP 2022 History of Any Multi-Drug Resistant Organisms: None Reported Past Surgical History: Breast Surgery, Section, Cholecystectomy, Hysterectomy, Orthopedic Surgery, Tonsillectomy Additional Past Surgical History / Comment(s): C-SEC X 2. LT BREAST LUMPECTOMY. COLONOSCOPY. RT KNEE SX Past Anesthesia/Blood Transfusion Reactions: No Reported Reaction Additional Past Anesthesia/Blood Transfusion Reaction / Comment(s): no blood transfusions Smoking Status: Former smoker - Past Family History Daughter(s) Family Medical History: Deep Vein Thrombosis (DVT) Mother Family Medical History: Cancer Additional Family Medical History / Comment(s): lung cancer Sister(s) Family Medical History: Cancer Additional Family Medical History / Comment(s): bowel, and lung cancer Medications and Allergies Home Medications Medication Instructions Recorded Confirmed Type Atorvastatin [Lipitor] 40 mg PO HS 04/21/19 10/24/22 History Fenofibrate Nanocrystallized 145 mg PO HS 04/21/19 10/29/22 History [Fenofibrate] Levothyroxine Sodium 100 mcg PO DAILY 04/21/19 10/24/22 History Losartan Potassium 50 mg PO DAILY 04/21/19 10/24/22 History Multivitamin [Multivitamins Adult 1 each PO DAILY 04/21/19 10/24/22 History Gummies] amLODIPine BESYLATE 10 mg PO DAILY 04/21/19 10/24/22 History clonazePAM 0.5 mg PO DAILY PRN 04/21/19 10/24/22 History levETIRAcetam [Keppra] 750 mg PO Q12HR 04/21/19 10/24/22 History metFORMIN HCL [Glucophage] 500 mg PO BID 04/21/19 10/24/22 History Aspirin [Adult Low Dose Aspirin EC] 81 mg PO DAILY 02/25/22 10/24/22 History Dulaglutide [Trulicity] 0.75 mg SQ COMBS 02/25/22 10/24/22 History Acetaminophen Tab [Tylenol Tab] 1,000 mg PO Q6HR PRN #30 tablet 04/22/22 10/24/22 Rx ondansetron HCL [Zofran] 8 mg PO DIRECTED PRN 10/17/22 10/29/22 History Pembrolizumab [Keytruda] 100 mg IV Q30D 10/24/22 10/29/22 History Glimepiride [Amaryl] 4 mg PO BID 10/29/22 10/29/22 History Allergies Allergy/AdvReac Type Severity Reaction Status Date / Time cephalexin [From Keflex] Allergy Rash/Hives Verified 10/24/22 15:39 etodolac Allergy Unknown Verified 10/24/22 15:39 latex Allergy Rash/Hives Verified 10/24/22 15:39 MARY Inhibitors AdvReac Cough Verified 10/24/22 15:39 Surgical - Exam Vital Signs Temp Pulse Resp BP Pulse Ox 97.1 F L 91 16 128/70 98 10/29/22 10:19 10/29/22 10:19 10/29/22 10:19 10/29/22 10:19 10/29/22 10:19 - General well developed, well nourished, no distress - Eyes PERRL - ENT normal pinna - Neck no masses - Respiratory normal expansion - Cardiovascular Rhythm: regular - Abdomen Abdomen: soft, non tender Results - Labs 10/29/22 10:23 10/29/22 10:23 Abnormal Lab Results - Last 24 Hours (Table) 10/29/22 10/29/22 Range/Units 10:23 10:23 RBC 3.51 L (3.80-5.40) m/uL MCV 100.4 H (80.0-100.0) fL RDW 15.7 H (11.5-15.5) % Eosinophils # 1.3 H (0-0.7) k/uL Chloride 111 H (98-107) mmol/L Carbon Dioxide 20 L (22-30) mmol/L Glucose 116 H (74-99) mg/dL Calcium 10.3 H (8.4-10.2) mg/dL AST 62 H (14-36) U/L Diabetes panel 10/29/22 Range/Units 10:23 Sodium 141 (137-145) mmol/L Potassium 3.8 (3.5-5.1) mmol/L Chloride 111 H (98-107) mmol/L Carbon Dioxide 20 L (22-30) mmol/L BUN 16 (7-17) mg/dL Creatinine 0.94 (0.52-1.04) mg/dL Glucose 116 H (74-99) mg/dL Calcium 10.3 H (8.4-10.2) mg/dL AST 62 H (14-36) U/L ALT 34 (4-34) U/L Alkaline Phosphatase 45 (38-126) U/L Total Protein 7.0 (6.3-8.2) g/dL Albumin 4.4 (3.5-5.0) g/dL Calcium panel 10/29/22 Range/Units 10:23 Calcium 10.3 H (8.4-10.2) mg/dL Albumin 4.4 (3.5-5.0) g/dL Pituitary panel 10/29/22 Range/Units 10:23 Sodium 141 (137-145) mmol/L Potassium 3.8 (3.5-5.1) mmol/L Chloride 111 H (98-107) mmol/L Carbon Dioxide 20 L (22-30) mmol/L BUN 16 (7-17) mg/dL Creatinine 0.94 (0.52-1.04) mg/dL Glucose 116 H (74-99) mg/dL Calcium 10.3 H (8.4-10.2) mg/dL Adrenal panel 10/29/22 Range/Units 10:23 Sodium 141 (137-145) mmol/L Potassium 3.8 (3.5-5.1) mmol/L Chloride 111 H (98-107) mmol/L Carbon Dioxide 20 L (22-30) mmol/L BUN 16 (7-17) mg/dL Creatinine 0.94 (0.52-1.04) mg/dL Glucose 116 H (74-99) mg/dL Calcium 10.3 H (8.4-10.2) mg/dL Total Bilirubin 0.8 (0.2-1.3) mg/dL AST 62 H (14-36) U/L ALT 34 (4-34) U/L Alkaline Phosphatase 45 (38-126) U/L Total Protein 7.0 (6.3-8.2) g/dL Albumin 4.4 (3.5-5.0) g/dL Assessment and Plan Assessment: Patient will have her Port-A-Cath removed.
[2022-10-29] MEDS ORDERED: ACETAMINOPHEN TAB 325 MG TAB PO PRN (15:39)
[2022-10-29] MEDS ORDERED: HYDROmorphone 1 MG/ML 1 ML SYRINGE IVP PRN (15:39)
[2022-10-29] MEDS ORDERED: ONDANSETRON 4 MG/2 ML VIAL IVP PRN (15:39)
[2022-10-29] MEDS ORDERED: NALOXONE 0.4 MG/ML 1 ML VIAL IV PRN (15:39)
--- NOTE | 2022-10-29 15:39 | P.OP ---
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; RAD 51D mutation Postoperative Diagnosis: same Procedure(s) Performed: Bilateral mastectomy, left axillary node mapping, left axillary exploration sentinel node biopsy Anesthesia: NATI Surgeon: Karla Winters Estimated Blood Loss (ml): 15 IV fluids (ml): 400 Pathology: other (Bilateral breast, left axillary contents) Condition: stable Disposition: floor Indications for Procedure: Left breast recurrence/invasive ductal carcinoma, positive genetic mutation increasing risk of cancer breast cancer RAD 51 D Operative Findings: Left breast radiated tissue Description of Procedure: The patient is a 62-year-old white female who was diagnosed with a left breast invasive ductal carcinoma. She was initially diagnosed at age 38 with a left breast cancer which was treated with surgery and radiation therapy and chemotherapy. She did not have any hormonal therapy. At this point she received neoadjuvant chemotherapy. She had genetic testing done which revealed returning increased risk for breast cancer with imaging which was RAD 51D. After presentation at tumor board discussion with the patient she wished for bilateral mastectomy. The patient was initially seen by radiology in the preoperative area of tracer was placed in the left periareolar region. She was then brought to the operative suite. She had also requested that a Port-A-Cath be removed and this was to be done by Dr. Warren. The patient was brought to the operative suite and following induction of anesthesia the neoprobe was used to interrogate the axilla. No increased radioactivity was identified in the left axilla. She had undergone a previous axillary node dissection at the age of 38. 5 mL of half percent methylene blue were injected into the periareolar region. The breast was massaged. Prior to starting the bilateral mastectomies the right chest wall was prepped and draped and Dr. Warren remove the Port-A-Cath. He will dictate this portion of the procedure. Following this the patient was reprepped and draped the left breast in the left axilla. The right side was approached initially. Superior and inferior skin flaps were developed. The breast was removed from medial to lateral being careful to maintain hemostasis using electrocautery device. Several vessels medially were suture ligated. After assured that hemostasis was attained the wound was well irrigated. Surgicel and Proctofoam was placed. A #10 DANTE drain was placed and secured using a nylon suture. The flaps were brought together using 3-0 Vicryl suture. This is followed by closure of the skin with 4-0 Monocryl. The area of the left breast was approached. Superior and inferior flaps were developed. The breast was removed from medial to lateral using electrocautery device. After assured that hemostasis was attained the wound was well irrigated. Surgicel and Proctofoam was placed. The level of the axilla was interrogated. In the axillary tissue which was removed in continuity with the breast there was an area of increased radioactivity to 495. Very small. The consistent with a lymph node was identified. There was a blue lymphatic going to this area as well. This was sent separately. The background count in this area was 58. No palpable adenopathy was identified. No blue lymph nodes were identified in the axilla additionally. The patient had undergone a previous axillary node dissection and therefore no further dissection the axilla was performed. A DANTE drain was placed and secured using a nylon suture. The deep tissues were closed using 3-0 Vicryl suture. The skin was closed using 4-0 Monocryl. Steri- Strips were applied at the end of the case. The patient tolerated procedure in stable condition. All instrument and sponge counts were correct at the end of the case.
[2022-10-29] MEDS ORDERED: ONDANSETRON 4 MG/2 ML VIAL IVP ONE (16:11)
[2022-10-29] MEDS ORDERED: droPERidol 5 MG/2 ML VIAL IVP ONE (17:00)
[2022-10-29 17:06] LABS: Glucose,Whole Blood 242 mg/dL (70-110)
[2022-10-29] MEDS: fentaNYL (PF) 50 MCG/ML 2 ML AMP IVP ONE ×2 (17:23→17:31)
[2022-10-29] MEDS ORDERED: LACTATED RINGERS 1,000 ML IV ONE (18:15)
[2022-10-29] MEDS: HYDROcodone/APAP 5-325MG 1 EACH TAB PO PRN (21:37)
[2022-10-29] MEDS ORDERED: clonazePAM 0.5 MG TAB PO PRN (22:05)
[2022-10-29] MEDS ORDERED: ATORVASTATIN 40 MG TAB PO SCH (22:15)
[2022-10-29] MEDS ORDERED: FENOFIBRATE 160 MG TAB PO SCH (22:15)
[2022-10-29] MEDS: SODIUM CHLORIDE 0.9% 1,000 ML IV SCH (22:20)
[2022-10-29 22:27] LABS: Glucose,Whole Blood 167 mg/dL (70-110)
[2022-10-29] MEDS: HEPARIN SODIUM,PORCINE 5,000 UNIT/ML 1 ML VIAL SQ SCH (23:47)
[2022-10-30] MEDS: HYDROcodone/APAP 5-325MG 1 EACH TAB PO PRN ×3 (01:37→09:16)
[2022-10-30] MEDS: SODIUM CHLORIDE 0.9% 1,000 ML IV SCH (04:15)
[2022-10-30 04:24] VITALS: TEMP 98.3
[2022-10-30 05:45] LABS: Glucose,Whole Blood 121 mg/dL (70-110)
[2022-10-30] MEDS ORDERED: LEVOTHYROXINE 100 MCG TAB PO SCH (06:30)
[2022-10-30 06:57] LABS: Basophils # (A) 0.1 k/uL (0-0.2); Basophils % (A) 0 %; Eosinophils # (A) 0.4 k/uL (0-0.7); Eosinophils % (A) 4 %; HCT 31.6 % (34.0-46.0); HGB 10.5 gm/dL (11.4-16.0); Lymphocytes # (A) 2.2 k/uL (1.0-4.8); Lymphocytes % (A) 19 %; MCH 33.3 pg (25.0-35.0); MCHC 33.3 g/dL (31.0-37.0); MCV 100.1 fL (80.0-100.0); Macrocytosis Slight; Mean Platelet Volume 8.5; Monocytes # (A) 0.7 k/uL (0-1.0); Monocytes % (A) 6 %; Neutrophils # (A) 7.7 k/uL (1.3-7.7); Neutrophils % (A) 69 %; Platelet Count 147 k/uL (150-450); RBC 3.16 m/uL (3.80-5.40); RDW 15.7 % (11.5-15.5); WBC 11.2 k/uL (3.8-10.6)
[2022-10-30] MEDS: HEPARIN SODIUM,PORCINE 5,000 UNIT/ML 1 ML VIAL SQ SCH (08:59)
[2022-10-30] MEDS ORDERED: ASPIRIN 81 MG PO SCH (09:00)
[2022-10-30] MEDS ORDERED: amLODIPine 10 MG TAB PO SCH (09:00)
[2022-10-30] MEDS ORDERED: GLIMEPIRIDE 4 MG TAB PO SCH (09:00)
[2022-10-30] MEDS ORDERED: LOSARTAN 50 MG TAB PO SCH (09:00)
[2022-10-30 09:32] VITALS: BP 125/68; PULSE 91; RESP 18
--- NOTE | 2022-10-30 10:31 | P.PN ---
Subjective Progress Note Date: 10/30/22 Principal diagnosis: POD#1 bilateral mastectomy with left axillary node sampling The patient is a 62-year-old white female postop day #1 bilateral mastectomy with left axillary node sampling. Initially postoperatively she had some nausea and vomiting which has resolved. At this time she is doing well and tolerating diet without difficulty. Her hemoglobin is stable. DANTE output left and right are minimal and serous in nature. Objective - Vital Signs Vital signs: Vital Signs Temp 98.3 F 10/30/22 09:00 Pulse 91 10/30/22 09:00 Resp 18 10/30/22 09:00 BP 125/68 10/30/22 09:00 Pulse Ox 93 L 10/30/22 00:10 FiO2 Intake & Output 10/29/22 10/30/22 10/30/22 18:59 06:59 18:59 Intake Total 1300 Output Total 15 1130 Balance 1285 -1130 Weight 92 kg 92 kg Intake: IV 1300 Output: Drainage 30 Left Chest 10 Right Chest 20 Urine 1100 Estimated Blood Loss 15 Other: # Voids 1 - Constitutional General appearance: Present: cooperative - EENT Eyes: Present: edentulous ENT: Present: hearing grossly normal - Neck Neck: Present: normal ROM - Respiratory Respiratory: bilateral: CTA - Cardiovascular Heart sounds: normal: S1, S2 - Integumentary Integumentary Comment(s): Dressing changed incision clean and dry bilateral, DANTE drains intact output minimal and serous Left DANTE: 10 mL Right DANTE: 20 mL - Psychiatric Psychiatric: Present: A&O x's 3, appropriate affect, intact judgment & insight - Labs CBC & Chem 7: 10/30/22 05:32 10/29/22 10:23 Labs: Abnormal Lab Results - Last 24 Hours (Table) 10/29/22 10/29/22 10/29/22 Range/Units 10:23 10:23 17:03 WBC (3.8-10.6) k/uL RBC 3.51 L (3.80-5.40) m/uL Hgb (11.4-16.0) gm/dL Hct (34.0-46.0) % MCV 100.4 H (80.0-100.0) fL RDW 15.7 H (11.5-15.5) % Plt Count (150-450) k/uL Eosinophils # 1.3 H (0-0.7) k/uL Chloride 111 H (98-107) mmol/L Carbon Dioxide 20 L (22-30) mmol/L Glucose 116 H (74-99) mg/dL POC Glucose (mg/dL) 242 H (70-110) mg/dL Calcium 10.3 H (8.4-10.2) mg/dL AST 62 H (14-36) U/L 10/29/22 10/30/22 10/30/22 Range/Units 22:26 05:32 05:44 WBC 11.2 H (3.8-10.6) k/uL RBC 3.16 L (3.80-5.40) m/uL Hgb 10.5 L (11.4-16.0) gm/dL Hct 31.6 L (34.0-46.0) % MCV 100.1 H (80.0-100.0) fL RDW 15.7 H (11.5-15.5) % Plt Count 147 L (150-450) k/uL Eosinophils # (0-0.7) k/uL Chloride (98-107) mmol/L Carbon Dioxide (22-30) mmol/L Glucose (74-99) mg/dL POC Glucose (mg/dL) 167 H 121 H (70-110) mg/dL Calcium (8.4-10.2) mg/dL AST (14-36) U/L Assessment and Plan Assessment: Impression: Patient doing well postop day #1 bilateral mastectomy with left axillary node sampling Plan: Discharge home if okay with Dr. Ho Follow-up Dr. Peña 1 week Patient is going to be seen by home health care CC: Dr. Barraza
--- NOTE | 2022-10-30 10:35 | P.DS ---
Providers Expected date of discharge: 10/30/22 Attending physician: Karla Winters Consults: 10/29/22 15:42 Consult Physician Routine Consulting Provider: Rajan Barraza Consult Reason/Comments: medical managment Do you want consulting provider notified?: Yes Primary care physician: Rajan Barraza Hospital Course: Candy is a 62-year-old white female postop day #1 bilateral mastectomy with left axillary node sampling. Postoperatively she has done well. She had some initial nausea and vomiting which has resolved. She is tolerating diet at this time. Plan - Discharge Summary Discharge Rx Participant: Yes New Discharge Prescriptions: No Action levETIRAcetam [Keppra] 750 mg PO Q12HR Losartan Potassium 50 mg PO DAILY metFORMIN HCL [Glucophage] 500 mg PO BID clonazePAM 0.5 mg PO DAILY PRN PRN Reason: Anxiety amLODIPine BESYLATE 10 mg PO DAILY Atorvastatin [Lipitor] 40 mg PO HS Multivitamin [Multivitamins Adult Gummies] 1 each PO DAILY Levothyroxine Sodium 100 mcg PO DAILY Fenofibrate Nanocrystallized [Fenofibrate] 145 mg PO HS Dulaglutide [Trulicity] 0.75 mg SQ COMBS Aspirin [Adult Low Dose Aspirin EC] 81 mg PO DAILY Acetaminophen Tab [Tylenol Tab] 1,000 mg PO Q6HR PRN #30 tablet PRN Reason: Pain Pembrolizumab [Keytruda] 100 mg IV Q30D Glimepiride [Amaryl] 4 mg PO BID ondansetron HCL [Zofran] 8 mg PO DIRECTED PRN PRN Reason: Nausea Discharge Medication List Atorvastatin [Lipitor] 40 mg PO HS 04/21/19 [History] Fenofibrate Nanocrystallized [Fenofibrate] 145 mg PO HS 04/21/19 [History] Levothyroxine Sodium 100 mcg PO DAILY 04/21/19 [History] Losartan Potassium 50 mg PO DAILY 04/21/19 [History] Multivitamin [Multivitamins Adult Gummies] 1 each PO DAILY 04/21/19 [History] amLODIPine BESYLATE 10 mg PO DAILY 04/21/19 [History] clonazePAM 0.5 mg PO DAILY PRN 04/21/19 [History] levETIRAcetam [Keppra] 750 mg PO Q12HR 04/21/19 [History] metFORMIN HCL [Glucophage] 500 mg PO BID 04/21/19 [History] Aspirin [Adult Low Dose Aspirin EC] 81 mg PO DAILY 02/25/22 [History] Dulaglutide [Trulicity] 0.75 mg SQ COMBS 02/25/22 [History] Acetaminophen Tab [Tylenol Tab] 1,000 mg PO Q6HR PRN #30 tablet 04/22/22 [Rx] ondansetron HCL [Zofran] 8 mg PO DIRECTED PRN 10/17/22 [History] Pembrolizumab [Keytruda] 100 mg IV Q30D 10/24/22 [History] Glimepiride [Amaryl] 4 mg PO BID 10/29/22 [History] Follow up Appointment(s)/Referral(s): [facility], [NON-STAFF] - 1-2 Days Karla Winters MD [STAFF PHYSICIAN] - 1 Week Activity/Diet/Wound Care/Special Instructions: Do not drive until seen by Dr. Peña Home health care to help with dressing changes Drain and record DANTE output twice a day and as needed May shower after [address] at all times unless showering Discharge Disposition: HOME SELF-CARE
--- NOTE | 2022-10-30 20:34 | CONS ---
CONSULTATION CHIEF COMPLAINT: CA of the breast. HISTORY OF PRESENT ILLNESS: This is another admission for this 62-year-old white female. She was diagnosed and treated for left-sided breast cancer 30 years ago. Treatment was lumpectomy with radiation. She then recently developed another lesion in the left breast. Genetic testing revealed that she is high risk, and she has undergone elective bilateral mastectomy. She has been on chemotherapy. REVIEW OF SYSTEMS: She denies any headaches, chest pain, shortness of breath, abdominal pain, etc. Past medical history, family history, and personal and social histories are all otherwise unremarkable and noncontributory and can be found in her admitting summaries. PHYSICAL EXAMINATION: VITAL SIGNS: Blood pressure is 132/64 with a pulse of 79 and respirations of 14. She is afebrile. GENERAL: She appeared to be in no acute distress. HEAD, EARS, EYES, NOSE, MOUTH, AND THROAT: Normal. CHEST: Clear. She has a chest compression dressing in place. CARDIAC: Normal. ABDOMEN: Soft and nontender. EXTREMITIES: Normal. NEUROLOGIC: Intact. DIAGNOSES: She is admitted to the hospital with diagnoses: 1. History of carcinoma of the left breast in the past as well as recent recurrence. RECOMMENDATIONS: None. MMODL / IJN: [id number] /
--- NOTE | 2022-10-30 21:13 | PN ---
PROGRESS NOTE DATE OF SERVICE: 10/30/2022 CHIEF COMPLAINT: Status post bilateral mastectomy. HISTORY OF PRESENT ILLNESS: This lady is doing fairly well and is planning on going home. REVIEW OF SYSTEMS: She denies fever, chills, shortness of breath, abdominal pain, etc., and she is not having a lot of pain. PHYSICAL EXAMINATION: Status post bilateral mastectomy. PLAN: Home today, and we will follow her up in the office in a week. MMODL / IJN: [id number] /
== END 2022-10-30 15:10 | disposition home or self-care (01) ==
LOC: OR 09:38 → 4FBP 15:53 → OR 10-30 15:10
PROVIDERS: ATTEND Surgery
DX: C50.912 Malignant neoplasm of unspecified site of left female breast (principal); J45.909 Unspecified asthma, uncomplicated; I12.9 Hypertensive chronic kidney disease with stage 1 through stage 4 chronic kidney disease, or unspecified chronic kidney disease; E78.5 Hyperlipidemia, unspecified; M19.90 Unspecified osteoarthritis, unspecified site; E11.22 Type 2 diabetes mellitus with diabetic chronic kidney disease; Z85.3 Personal history of malignant neoplasm of breast; Z86.73 Personal history of transient ischemic attack (TIA), and cerebral infarction without residual deficits; G47.30 Sleep apnea, unspecified; Z85.41 Personal history of malignant neoplasm of cervix uteri; Z90.49 Acquired absence of other specified parts of digestive tract; Z90.710 Acquired absence of both cervix and uterus; Z90.89 Acquired absence of other organs; Z87.891 Personal history of nicotine dependence; Z80.1 Family history of malignant neoplasm of trachea, bronchus and lung; Z79.890 Hormone replacement therapy; Z79.84 Long term (current) use of oral hypoglycemic drugs; Z79.82 Long term (current) use of aspirin; Z79.899 Other long term (current) drug therapy; Z88.1 Allergy status to other antibiotic agents
CPT/HCPCS: 80053; 85025 ×2; 38792; 19303; 38525; 38900; 36590; A9520; J1644 ×3; J1100; J0690; J2405; J3010; J1790

== ENCOUNTER → 2022-11-14 | Outpatient (CLI) | payer MEDICARE, OTHER ==
--- NOTE | 2022-11-14 14:45 | P.PN ---
Progress Note - Text Progress Note Date: 11/14/22 Candy is status post a bilateral mastectomy and SNB of the left breast on 10-29-22. She is doing well postprocedure. Her left DANTE drain was removed. Her right DANTE is still over 40 mL per day. Pathology discussed with the patient and her sister. Right breast: Benign breast tissue with fibrocystic changes 10 benign axillary nodes Left breast: Mastectomy minute focus of high-grade DCIS margins negative, no residual invasive cancer identified. The patient had some axillary tissue removed but no nodes were identified. She has had node dissection in the past for a prior left breast cancer with axillary node removal. Examination: Lungs: Clear Heart: Regular rate and rhythm Incisions clean and dry bilateral small seroma left chest wall, no seroma on the right side Plan: leave right DANTE drain until next week CC: Dr. Barraza Additional CC's: Rajan Barraza
[2022-11-14 15:02] VITALS: BP 114/75; PULSE 81; RESP 16; TEMP 98.3
== END ==
LOC: WWCWWP 13:52
PROVIDERS: ATTEND Surgery
DX: L76.82 Other postprocedural complications of skin and subcutaneous tissue (principal); Z85.3 Personal history of malignant neoplasm of breast; Z88.1 Allergy status to other antibiotic agents; Z88.8 Allergy status to other drugs, medicaments and biological substances; Z87.891 Personal history of nicotine dependence; Z91.040 Latex allergy status

== ENCOUNTER → 2022-11-21 | Outpatient (CLI) | payer MEDICARE, OTHER ==
--- NOTE | 2022-11-21 10:22 | P.PN ---
Progress Note - Text Progress Note Date: 11/21/22 Candy is status post a bilateral mastectomy and SNB of the left breast on 10-29-22. She is doing well postprocedure. Her left DANTE drain was removed. Her right DANTE is still over 40 mL per day; this is up approximately 65 mL yesterday. The patient states yesterday she had a temperature to 101.8. This has gone down today to normal. She is not complaining of any pain. She had some nausea yasterday, She is due for Keytruda next week. T: 98.2 BP: 88/61 increased to 97/67 HR: 65 Examination: Lungs: Clear Heart: Regular rate and rhythm Incisions clean and dry bilateral small seroma left chest wall, no seroma on the right side; drain site clean and dry no evidence of infection; DANTE output is serous and clean with no turbidity Impression: Fever yesterday which seems to have resolved this does not appear to be related to the surgery Plan: leave right DANTE drain until next week Follow with Dr. Barraza regarding fever: I have called his office and she will be seen in ER Follow-up here sooner any questions or concerns CC: Dr. Barraza
[2022-11-21 10:27] VITALS: BP 97/67; PULSE 65; RESP 18; TEMP 98.2
== END ==
LOC: WWCWWP 09:46
PROVIDERS: ATTEND Surgery
DX: L76.33 Postprocedural seroma of skin and subcutaneous tissue following a dermatologic procedure (principal); R50.9 Fever, unspecified; R11.10 Vomiting, unspecified; Z88.1 Allergy status to other antibiotic agents; Z88.8 Allergy status to other drugs, medicaments and biological substances; Z90.13 Acquired absence of bilateral breasts and nipples; Z91.040 Latex allergy status; Z87.891 Personal history of nicotine dependence

== ENCOUNTER → 2022-11-29 | Outpatient (CLI) | payer MEDICARE, OTHER ==
--- NOTE | 2022-11-29 12:36 | P.PN ---
Progress Note - Text Progress Note Date: 11/29/22 Candy is status post a bilateral mastectomy and SNB of the left breast on 10-29-22. She is doing well postprocedure. Her left DANTE drain was removed. Her right DANTE is still over 40 mL per day; this is up approximately 65 mL yesterday. Patient on her last postop visit was noted to have a temperature to 101.8. She was sent for evaluation to the emergency room at [facility], [place]. She was admitted there and treated with IV antibiotics. They stated that she had sepsis but were uncertain of the source. At this time she is feeling well. She does not have any fever or chills. DANTE drain about 40 cc/day serous. She was started on new medications: Metoprolol Doxycycline cefuroxime potassium chloride Examination: Lungs: Clear Heart: Regular rate and rhythm Incisions clean and dry bilateral small seroma left chest wall, no seroma on the right side; drain site clean and dry no evidence of infection; DANTE output is serous and clean with no turbidity Impression: Patient doing well at this time Plan: leave right DANTE drain until next week Follow-up here sooner any questions or concerns CC: Dr. Barraza
[2022-11-29 12:49] VITALS: BP 109/76; PULSE 83; RESP 18; TEMP 97.8
== END ==
LOC: WWCWWP 12:25
PROVIDERS: ATTEND Surgery
DX: Z85.3 Personal history of malignant neoplasm of breast (principal); Z90.13 Acquired absence of bilateral breasts and nipples; Z88.1 Allergy status to other antibiotic agents; Z88.8 Allergy status to other drugs, medicaments and biological substances; Z91.040 Latex allergy status; Z87.891 Personal history of nicotine dependence

== ENCOUNTER → 2022-12-03 | Outpatient (CLI) | payer MEDICARE, OTHER ==
--- NOTE | 2022-12-03 08:20 | P.PN ---
Progress Note - Text Progress Note Date: 12/03/22 Candy is status post a bilateral mastectomy and SNB of the left breast on 10-29-22. She is doing well postprocedure. Her left DANTE drain was removed. Patient on postop visit 11-21-22 was noted to have a temperature to 101.8. She was sent for evaluation to the emergency room at [facility]. She was admitted there and treated with IV antibiotics. They stated that she had sepsis but were uncertain of the source. At this time she is feeling well. She does not have any fever or chills. DANTE drain about 30 cc/day serous. The left chest wall. She was started on new medications: Metoprolol Doxycycline cefuroxime potassium chloride Examination: Lungs: Clear Heart: Regular rate and rhythm Incisions clean and dry bilateral small seroma left chest wall, no seroma on the right side; drain site clean and dry no evidence of infection; DANTE output is serous and clean with no turbidity Impression: Patient doing well at this time Plan: Removal of right DANTE drain Aspiration seroma left chest wall Follow-up 2 weeks CC: Dr. Barraza Additional CC's: Rajan Barraza
== END ==
LOC: WWCWWP 07:46
PROVIDERS: ATTEND Surgery
DX: Z85.3 Personal history of malignant neoplasm of breast (principal); Z90.13 Acquired absence of bilateral breasts and nipples; Z88.1 Allergy status to other antibiotic agents; Z88.8 Allergy status to other drugs, medicaments and biological substances; Z91.040 Latex allergy status; Z87.891 Personal history of nicotine dependence

== ENCOUNTER → 2022-12-10 | Outpatient (CLI) | payer MEDICARE, OTHER ==
--- NOTE | 2022-12-10 08:04 | P.PN ---
Progress Note - Text Progress Note Date: 12/10/22 Candy is status post a bilateral mastectomy and SNB of the left breast on 10-29-22. She is doing well postprocedure. Her left DANTE drain was removed. Patient on postop visit 11-21-22 was noted to have a temperature to 101.8. She was sent for evaluation to the emergency room at [facility]. She was admitted there and treated with IV antibiotics. They stated that she had sepsis but were uncertain of the source. At this time she is feeling well. She does not have any fever or chills. A DANTE drain was removed on her last visit. She then noted a questionable stitch in the right axilla at the site of the drain removal. She comes for evaluation of this. She was started on new medications: Metoprolol Doxycycline cefuroxime potassium chloride Examination: Lungs: Clear Heart: Regular rate and rhythm Incisions clean and dry bilateral small suture at drain site on the right, small seroma on the right side Impression: Patient doing well at this time Plan: Drainage of seroma right side Removal of suture drain site on the right Following informed consent the area of concern was prepped using alcohol. An 18-gauge needle on a 20 mL syringe was used to remove 55 mL of serous straw- colored fluid. There was complete resolution of the seroma. The patient tolerated the procedure in stable condition. Follow-up 2 weeks CC: Dr. Barraza
== END ==
LOC: WWCWWP 07:54
PROVIDERS: ATTEND Surgery
DX: Z04.89 Encounter for examination and observation for other specified reasons (principal); Z85.3 Personal history of malignant neoplasm of breast; Z90.13 Acquired absence of bilateral breasts and nipples; Z88.1 Allergy status to other antibiotic agents; Z88.8 Allergy status to other drugs, medicaments and biological substances; Z91.040 Latex allergy status; Z87.891 Personal history of nicotine dependence

== ENCOUNTER → 2022-12-20 | Outpatient (CLI) | payer MEDICARE, OTHER | LOC: WWCWWP 09:36 | PROVIDERS: ATTEND Surgery | DX: Z85.3 Personal history of malignant neoplasm of breast (principal); Z88.1 Allergy status to other antibiotic agents; Z88.8 Allergy status to other drugs, medicaments and biological substances; Z91.040 Latex allergy status; Z87.891 Personal history of nicotine dependence ==

== ENCOUNTER → 2023-01-17 | Outpatient (CLI) | payer MEDICARE, OTHER ==
[2023-01-17 09:23] VITALS: BP 122/77; PULSE 87; RESP 18; TEMP 98.1
== END ==
LOC: WWCWWP 08:00
PROVIDERS: ATTEND Surgery
DX: N64.89 Other specified disorders of breast (principal); Z85.3 Personal history of malignant neoplasm of breast; Z88.1 Allergy status to other antibiotic agents; Z91.040 Latex allergy status; Z88.8 Allergy status to other drugs, medicaments and biological substances; Z87.891 Personal history of nicotine dependence
CPT/HCPCS: 87070; 87075; 87205

== ENCOUNTER → 2023-01-17 | Outpatient (CLI) | payer MEDICARE, OTHER ==
--- NOTE | 2023-01-17 08:32 | USB ---
Reason for Exam: Clinical finding. Patient History: Menarche at age 12. First Full-Term at age 23. Hysterectomy at age 27. Postmenopausal. Breast cancer, age 38. Endometrial cancer, age 24. Breast cancer, left, age 62. 10/29/2022, Mastectomy on the Left side. 10/29/2022, Mastectomy on the Right side. 03/13/2022, Malignant US biopsy breast VAD LT on the left side. 12/12/1998, Malignant Lumpectomy on the left side. 11/30/1998, Malignant Ultrasound-Guided Core Biopsy on the left side. Radiation Therapy, left. Chemotherapy. Technique: Method: Targeted. Prior Study Comparison: 04/26/2021 Bilateral Diagnostic Mammogram, [facility]. 02/25/2022 Bilateral MG 3D diag mammo w/cad ROSE, [facility]. 03/13/2022 Left MG diagnostic mammo LT wo CAD., [facility]. Findings: The area of palpable concern of the right breast and the axilla of the right breast were scanned. Targeted scanning right breast along the patient's scar as palpable area extending into the axilla. There is a large complex collection with multiple septations measuring up to 10.4 cm wide by 5.7 cm craniocaudal by 2.0 cm thick. The collection extends laterally towards the axilla where irregular scar tissue is noted. Induration of the overlying skin surface. Additional faith doctor history that the patient is improving clinically after recently starting antibiotics. Overall Assessment: Benign, BI-RAD 2 Management: Clinical Management of the right breast in 3 months. Further clinical management and follow-up is recommended. Consider repeat ultrasound in 3 months to assess for involution of the seroma/residual abscess. The patient can be reimaged sooner if there is any worsening. Results were given to the patient verbally at the time of exam. Electronically signed and approved by: Vilma Holland M.D. Radiologist
--- NOTE | 2023-01-17 09:01 | P.PN ---
Subjective Progress Note Date: 01/17/23 stage II left breast invasive ductal cancer left breast stage II invasive ductal cancer/recurrent vs new primary 03-21-22 Candy is a 62 year old white female seen in consultation for Dr. Bolton regarding a biopsy proven left breast tripple (-) Grade 3 invasive ductal cancer. The Lesion is 2.7 cm on ultrasound. She had a bilateral mammogram on 02-25-22. No lesions of concern were noted in the right breast. She had a left breast ultrasound done on 02-25-22 This showed two lesions in the left breast one measuring o.6 cm and the other 2.3 cm. When reviewed with Dr. Melendez it was felt these were the same lesion. Biopsy of the lesion was (+) for invasive ductal cancer. The patient felt a lump in her breast first in January 2022, it did not change in size. Her last mammogram had been one year prior. She was not complaining of any skin changes or nipple discharge in her breast. She had a left breast lumpectomy and and AND when she was 38. She had radiation and chemotherapy. She did not take any hormone therapy. Case presented at tumor board on 04-05-22 Note Medical oncology reviewed 04-11-22 Dr. Sully Fernández; patient to receive devang- adjuvant chemotherapy Keynote 522 Note radiation oncology reviewed 03-28-[address] results pending port- a -cath to be placed probable mastectomy and SNB after chemotherapy 06-02-21 She started chemotherapy on April 11. She has 1 more treatment of a carboplatin/paclitaxell/keytruda. Since that time the tumor has shrunk so that she can no longer feel it. Her treatment regimen is per keynote 522 protocol: Carboplatin/paclitaxel/keytruda for 4 cycles followed by Adriamycin/cyclophosphamide/Keytruda for 4 cycles 08-30-22 note medical oncology reviewed PET 04-05-22 no evidence of metastatic disease RAD51D clinical [id number]% lifetime risk of breast cancer and increased risk for ovarian cancer; chose not to talk to data management specialist continue chemotherapy; her last treatment on August 14, will have two more treatments of chemotherapy Patient states that the lesion in the left breast is no longer palpable she is not complaining of any lumps masses or nodules of concern in either breast last mammogram 02-25-22- lesion in the left breast noted 9-7-23 Candy this 62-year-old white female who is noted to have a second breast cancer in the left breast. Initially she was diagnosed at age 38 with a left breast cancer which was treated with surgery and radiation therapy, and chemotherapy. She did not have any hormone therapy. Most recently she noted fullness in the left breast and workup revealed a density in the upper quadrant of the left breast. Ultrasound on noted a hypoechoic irregular mass measuring 3 cm in size. Ultrasound core biopsy was performed and this revealed an invasive ductal carcinoma which was ER/MD and HER-2 negative. A PET scan on did not show any metastatic disease. She has subsequently completed neoadjuvant chemotherapy, she is still receiving Keytruda. Had a repeat left breast ultrasound performed on 10-01-22, this revealed near resolution of the tumor. The reason an ultrasound was in rather than an MRI as the patient was unable to travel to get the MRI performed. 09-19-[address] Fernández reviewed 01-17-23 The patient underwent a bilateral mastectomy on 10-29-22. There was no evidence of residual cancer, concictent wtih pathologic complete response. ON her post op visit of 11-21-22 she was noted to have a fever adn sent to ER after which she was admited with sepsis of unknown source. She has done well until recently until approximately 1 week ago when she was noted to have redness and warmth of the right chest wall. She was seen in the emergency room at [facility], she was started on clindamycin 150 mg 3 times a day. She states it has improved. An ultrasound was done here on this revealed a complex collection with multiple septations measuring up to 10.4 cm wide by 5.7 cm. She is not complaining of any fever or chills. The redness has resolved. It feels numb and firm to the patient. CAffiene: 2-3 cups/day nicotien: none chocolate: none BCP: cervical cancer, used them from [age]; she had a partial hysterectomy at 24 Family History: mother: lung cancer, endometiral cancer sister: uterine cancer patient:breast and cervical cancer materal grandfather: SCC Hormonal History: menarche: 11 , breast fed: no, age at first biirth: 23 menopause: hysterectomy at 23, left ovariies Surgical History: gallbaldder left breast lumpectomy and axillary node diesection hysterectomy right knee surgery 2 C-sections tonsillectomy Medical History: CVA at 23 (blood clot, ? 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 liver enzymes elevated seizure disorder Social History: nicotine: none alcohol: none drugs: none - Constitutional Constitutional: Denies chills, Denies fever - EENT Eyes: denies blurred vision, denies pain Ears: deny: decreased hearing, tinnitus Ears, nose, mouth and throat: Denies headache, Denies sore throat - Breasts Breasts: bilateral: as per HPI - Cardiovascular Cardiovascular: Denies chest pain, Denies shortness of breath - Respiratory Respiratory: Denies cough - Gastrointestinal Gastrointestinal: Denies abdominal pain, Denies diarrhea, Denies nausea, Denies vomiting - Genitourinary (Female) Genitourinary: Denies dysuria, Denies hematuria - Menstruation Menstruation: Reports post hysterectomy, Reports postmenopausal - Musculoskeletal Comment: arthritis, DJD - Integumentary Comment: sees clinic business manager no cancer Integumentary: Reports pruritus - Neurological Neurological: Reports as per HPI - Psychiatric Psychiatric: Reports anxiety, Reports depression - Endocrine Comment: diabetes - Hematologic/Lymphatic Comment: aspirin - Allergic/Immunologic Allergic/Immunologic: Reports seasonal allergies Past Medical History Past Medical History: Cancer, Diabetes Mellitus, Hyperlipidemia, Hypertension, Seizure Disorder, Thyroid Disorder Additional Past Medical History / Comment(s): HX LT BREAST 1999 AND CERVICAL CANCER. LAST SEIZURE ABOUT 30 YEARS AGO. HAD RT CEREBRAL STROKE AGE 23-NO DEFICITS History of Any Multi-Drug Resistant Organisms: None Reported Past Surgical History: Breast Surgery, Section, Cholecystectomy, Hysterectomy, Orthopedic Surgery, Tonsillectomy Additional Past Surgical History / Comment(s): C-SEC X 2. LT BREAST LUMPECTOMY. COLONOSCOPY. RT KNEE SX Past Anesthesia/Blood Transfusion Reactions: No Reported Reaction Past Psychological History: Anxiety Smoking Status: Former smoker Past Alcohol Use History: None Reported Additional Past Alcohol Use History / Comment(s): QUIT SMOKING AT AGE 23 Past Drug Use History: None Reported - Past Family History Daughter(s) Family Medical History: Deep Vein Thrombosis (DVT) Medications and Allergies Home Medications Medication Instructions Recorded Confirmed Type Atorvastatin [Lipitor] 40 mg PO HS 04/21/19 03/21/22 History Fenofibrate Nanocrystallized 145 mg PO HS 04/21/19 03/21/22 History [Fenofibrate] Levothyroxine Sodium 100 mcg PO DAILY 04/21/19 03/21/22 History Losartan Potassium 50 mg PO DAILY 04/21/19 03/21/22 History Multivitamin [Multivitamins Adult 1 each PO DAILY 04/21/19 03/21/22 History Gummies] amLODIPine BESYLATE 10 mg PO DAILY 04/21/19 03/21/22 History clonazePAM 0.5 mg PO DAILY PRN 04/21/19 03/21/22 History levETIRAcetam [Keppra] 750 mg PO Q12HR 04/21/19 03/21/22 History metFORMIN HCL [Glucophage] 500 mg PO BID 04/21/19 03/21/22 History Aspirin [Adult Low Dose Aspirin EC] 81 mg PO DAILY 02/25/22 03/21/22 History Dulaglutide [Trulicity] 0.75 mg SQ WEEKLY 02/25/22 03/21/22 History Allergies Allergy/AdvReac Type Severity Reaction Status Date / Time cephalexin [From Keflex] Allergy Rash/Hives Verified 03/21/22 12:21 etodolac Allergy Unknown Verified 03/21/22 12:21 latex Allergy Rash/Hives Verified 03/21/22 12:21 MARY Inhibitors AdvReac Cough Verified 03/21/22 12:21 Objective - Constitutional General appearance: Present: cooperative - EENT Eyes: Present: EOMI ENT: Present: hearing grossly normal - Neck Neck: Present: normal ROM - Respiratory Respiratory: bilateral: CTA - Cardiovascular Heart sounds: normal: S1, S2 - Integumentary Integumentary: Present: normal turgor - Musculoskeletal Musculoskeletal: Present: gait normal - Psychiatric Psychiatric: Present: A&O x's 3, appropriate affect, intact judgment & insight - Additional findings Additional findings: Breast Exam: BRA: Right breast larger than left breast, patient wears a 38 B Inspection: right breast larger than left breast Palpation: Right breast: Multi-positional exam fibrocystic changes no discrete dominant masses or nodules of concern Right axilla: No adenopathy of concern Left breast: multi-positional exam no discrete dominant masses palpable at this time no other lumps masses or nodules of concern Left axilla: No adenopathy of concern Assessment and Plan Assessment: Impression: left breast recurrent invasive ductal cancer G3 [id number] Initial left breast cancer was at the age of 38 she underwent a lumpectomy/radiation therapy/and chemotherapy She received chemotherapy with good response and shrinkage of the tumor in the left breast Plan: 1. presentation of case at tumor board done 03-26-22 2. Completed devang-adjuvant chemotherapy, will continue keytruda 3. PET scan on no evidence of metastatic disease 5. genetic testing done and increased risk of breast cancer RAD51D mutation 6. I've discussed with the patient and at this point she would like to have bilateral mastectomy left sentinel node biopsy, possible left axillary node dissection and no reconstruction 7. Cardiology clearance 8. Clearance from primary care doctor 9. Clearance from medical oncology CC: Ese Hampton NP, Dr. Bolton Additional CC's: Rajan Barraza Objective - Constitutional General appearance: Present: cooperative - EENT Eyes: Present: EOMI ENT: Present: hearing grossly normal - Neck Neck: Present: normal ROM - Respiratory Respiratory: bilateral: CTA - Cardiovascular Heart sounds: normal: S1, S2 - Psychiatric Psychiatric: Present: A&O x's 3, appropriate affect, intact judgment & insight - Additional findings Additional findings: Area of the left chest wall incision is clean and dry and well-healed Area of the right chest wall incision has some mild erythema at the medial aspect there is a flap at the axilla with a fungal infection at that site and the patient has some fluid which was identified as well on ultrasound. Assessment and Plan Assessment: Impression: Seroma right chest wall with fungal infection at axillary skin flap Plan: Patient had a dose of Diflucan/is using nystatin powder Aspiration seroma right chest wall and sent for cultures Continue clindamycin Follow-up next week Following informed consent the area of concern in the right breast was prepped using alcohol. An 18-gauge needle on a 20 mL syringe was inserted into the area of concern. 32 mL of serous fluid was removed. This did not appear to be infected but will be sent for culture. The patient tolerated procedure in stable condition. The patient will follow up next week for evaluation CC: Dr. Barraza
== END | disposition home or self-care (01) ==
LOC: RADUSWWP 08:01
PROVIDERS: ATTEND Surgery
DX: L02.91 Cutaneous abscess, unspecified (principal); Z85.3 Personal history of malignant neoplasm of breast; Z78.0 Asymptomatic menopausal state

== ENCOUNTER → 2023-01-23 | Outpatient (CLI) | payer MEDICARE, OTHER ==
--- NOTE | 2023-01-23 09:02 | P.PN ---
Subjective Progress Note Date: 01/23/23 stage II left breast invasive ductal cancer left breast stage II invasive ductal cancer/recurrent vs new primary 03-21-22 Candy is a 62 year old white female seen in consultation for Dr. Bolton regarding a biopsy proven left breast tripple (-) Grade 3 invasive ductal cancer. The Lesion is 2.7 cm on ultrasound. She had a bilateral mammogram on 02-25-22. No lesions of concern were noted in the right breast. She had a left breast ultrasound done on 02-25-22 This showed two lesions in the left breast one measuring o.6 cm and the other 2.3 cm. When reviewed with Dr. Melendez it was felt these were the same lesion. Biopsy of the lesion was (+) for invasive ductal cancer. The patient felt a lump in her breast first in January 2022, it did not change in size. Her last mammogram had been one year prior. She was not complaining of any skin changes or nipple discharge in her breast. She had a left breast lumpectomy and and AND when she was 38. She had radiation and chemotherapy. She did not take any hormone therapy. Case presented at tumor board on 04-05-22 Note Medical oncology reviewed 04-11-22 Dr. Sully Fernández; patient to receive devang- adjuvant chemotherapy Keynote 522 Note radiation oncology reviewed 03-28-[address] results pending port- a -cath to be placed probable mastectomy and SNB after chemotherapy 06-02-21 She started chemotherapy on April 11. She has 1 more treatment of a carboplatin/paclitaxell/keytruda. Since that time the tumor has shrunk so that she can no longer feel it. Her treatment regimen is per keynote 522 protocol: Carboplatin/paclitaxel/keytruda for 4 cycles followed by Adriamycin/cyclophosphamide/Keytruda for 4 cycles 08-30-22 note medical oncology reviewed PET 04-05-22 no evidence of metastatic disease RAD51D clinical [id number]% lifetime risk of breast cancer and increased risk for ovarian cancer; chose not to talk to pharmacogeneticist continue chemotherapy; her last treatment on August 14, will have two more treatments of chemotherapy Patient states that the lesion in the left breast is no longer palpable she is not complaining of any lumps masses or nodules of concern in either breast last mammogram 02-25-22- lesion in the left breast noted 9-7-23 Candy this 62-year-old white female who is noted to have a second breast cancer in the left breast. Initially she was diagnosed at age 38 with a left breast cancer which was treated with surgery and radiation therapy, and chemotherapy. She did not have any hormone therapy. Most recently she noted fullness in the left breast and workup revealed a density in the upper quadrant of the left breast. Ultrasound on noted a hypoechoic irregular mass measuring 3 cm in size. Ultrasound core biopsy was performed and this revealed an invasive ductal carcinoma which was ER/PA and HER-2 negative. A PET scan on did not show any metastatic disease. She has subsequently completed neoadjuvant chemotherapy, she is still receiving Keytruda. Had a repeat left breast ultrasound performed on 10-01-22, this revealed near resolution of the tumor. The reason an ultrasound was in rather than an MRI as the patient was unable to travel to get the MRI performed. 09-19-[address] Fernández reviewed 01-17-23 The patient underwent a bilateral mastectomy on 10-29-22. There was no evidence of residual cancer, pathologic complete response. ON her post op visit of 11-21-22 she was noted to have a fever and sent to ER after which she was admitted with sepsis of unknown source. She has done well until recently until approximately 1 week ago when she was noted to have redness and warmth of the right chest wall. She was seen in the emergency room at [facility], she was started on clindamycin 150 mg 3 times a day. She states it has improved. An ultrasound was done here on this revealed a complex collection with multiple septations measuring up to 10.4 cm wide by 5.7 cm. She is not complaining of any fever or chills. The redness has resolved. It feels numb and firm to the patient. 01-23-23 The patient on had aspiration of the fluid collection in the right chest wall. This was sent for cultures there were no organisms seen and no growth after 3 days of the body fluid. No anaerobes were seen. The patient does have what appears to be a fungal infection in the axillary fold at the lateral aspect of the incision. She has not had any fever or chills. The area however of redness near the axillary tissue has not resolved and this appears to be consistent with a fungal infection. She has been using nystatin cream but the moisture is bothering her and we will change to nystatin powder. CAffiene: 2-3 cups/day nicotien: none chocolate: none BCP: cervical cancer, used them from [age]; she had a partial hysterectomy at 24 Family History: mother: lung cancer, endometiral cancer sister: uterine cancer patient:breast and cervical cancer materal grandfather: SCC Hormonal History: menarche: 11 , breast fed: no, age at first biirth: 23 menopause: hysterectomy at 23, left ovariies Surgical History: gallbaldder left breast lumpectomy and axillary node diesection hysterectomy right knee surgery 2 C-sections tonsillectomy Medical History: CVA at 23 (blood clot, ? 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 liver enzymes elevated seizure disorder Social History: nicotine: none alcohol: none drugs: none - Constitutional Constitutional: Denies chills, Denies fever - EENT Eyes: denies blurred vision, denies pain Ears: deny: decreased hearing, tinnitus Ears, nose, mouth and throat: Denies headache, Denies sore throat - Breasts Breasts: bilateral: as per HPI - Cardiovascular Cardiovascular: Denies chest pain, Denies shortness of breath - Respiratory Respiratory: Denies cough - Gastrointestinal Gastrointestinal: Denies abdominal pain, Denies diarrhea, Denies nausea, Denies vomiting - Genitourinary (Female) Genitourinary: Denies dysuria, Denies hematuria - Menstruation Menstruation: Reports post hysterectomy, Reports postmenopausal - Musculoskeletal Comment: arthritis, DJD - Integumentary Comment: sees air export coordinator no cancer Integumentary: Reports pruritus - Neurological Neurological: Reports as per HPI - Psychiatric Psychiatric: Reports anxiety, Reports depression - Endocrine Comment: diabetes - Hematologic/Lymphatic Comment: aspirin - Allergic/Immunologic Allergic/Immunologic: Reports seasonal allergies Past Medical History Past Medical History: Cancer, Diabetes Mellitus, Hyperlipidemia, Hypertension, Seizure Disorder, Thyroid Disorder Additional Past Medical History / Comment(s): HX LT BREAST 1999 AND CERVICAL CANCER. LAST SEIZURE ABOUT 30 YEARS AGO. HAD RT CEREBRAL STROKE AGE 23-NO DEFICITS History of Any Multi-Drug Resistant Organisms: None Reported Past Surgical History: Breast Surgery, Section, Cholecystectomy, Hysterectomy, Orthopedic Surgery, Tonsillectomy Additional Past Surgical History / Comment(s): C-SEC X 2. LT BREAST LUMPECTOMY. COLONOSCOPY. RT KNEE SX Past Anesthesia/Blood Transfusion Reactions: No Reported Reaction Past Psychological History: Anxiety Smoking Status: Former smoker Past Alcohol Use History: None Reported Additional Past Alcohol Use History / Comment(s): QUIT SMOKING AT AGE 23 Past Drug Use History: None Reported - Past Family History Daughter(s) Family Medical History: Deep Vein Thrombosis (DVT) Medications and Allergies Home Medications Medication Instructions Recorded Confirmed Type Atorvastatin [Lipitor] 40 mg PO HS 04/21/19 03/21/22 History Fenofibrate Nanocrystallized 145 mg PO HS 04/21/19 03/21/22 History [Fenofibrate] Levothyroxine Sodium 100 mcg PO DAILY 04/21/19 03/21/22 History Losartan Potassium 50 mg PO DAILY 04/21/19 03/21/22 History Multivitamin [Multivitamins Adult 1 each PO DAILY 04/21/19 03/21/22 History Gummies] amLODIPine BESYLATE 10 mg PO DAILY 04/21/19 03/21/22 History clonazePAM 0.5 mg PO DAILY PRN 04/21/19 03/21/22 History levETIRAcetam [Keppra] 750 mg PO Q12HR 04/21/19 03/21/22 History metFORMIN HCL [Glucophage] 500 mg PO BID 04/21/19 03/21/22 History Aspirin [Adult Low Dose Aspirin EC] 81 mg PO DAILY 02/25/22 03/21/22 History Dulaglutide [Trulicity] 0.75 mg SQ WEEKLY 02/25/22 03/21/22 History Allergies Allergy/AdvReac Type Severity Reaction Status Date / Time cephalexin [From Keflex] Allergy Rash/Hives Verified 03/21/22 12:21 etodolac Allergy Unknown Verified 03/21/22 12:21 latex Allergy Rash/Hives Verified 03/21/22 12:21 MARY Inhibitors AdvReac Cough Verified 03/21/22 12:21 Assessment and Plan Assessment: Impression: Seroma right chest wall with fungal infection at axillary skin flap Plan: Patient had a dose of Diflucan/is using nystatin powder Aspiration seroma right chest wall and sent for cultures Continue clindamycin Follow-up next week Following informed consent the area of concern in the right breast was prepped using alcohol. An 18-gauge needle on a 20 mL syringe was inserted into the area of concern. 32 mL of serous fluid was removed. This did not appear to be infected but will be sent for culture. The patient tolerated procedure in stable condition. The patient will follow up next week for evaluation CC: Dr. Barraza Additional CC's: Rajan Barraza Objective - Constitutional General appearance: Present: cooperative - Neck Neck: Present: normal ROM - Integumentary Integumentary Comment(s): Incision left chest wall clean and dry well-healed Incision right chest wall with redundant axillary tissue under which there is a apparent fungal infection no seroma to drain and no evidence of cellulitis - Psychiatric Psychiatric: Present: A&O x's 3, appropriate affect, intact judgment & insight Assessment and Plan Assessment: Impression: Status post bilateral mastectomy on . The patient prior to the surgery had neoadjuvant chemotherapy. The patient subsequently developed a fungal infection in an area of redundant axillary tissue. Plan: Nystatin powder Follow-up in [address] Fernández February 2023 CC: Dr. Barraza
[2023-01-23 09:37] VITALS: BP 143/78; PULSE 89; RESP 18; TEMP 97.7
== END ==
LOC: WWCWWP 08:44
PROVIDERS: ATTEND Surgery
DX: C50.912 Malignant neoplasm of unspecified site of left female breast (principal); L76.82 Other postprocedural complications of skin and subcutaneous tissue; E78.5 Hyperlipidemia, unspecified; G40.909 Epilepsy, unspecified, not intractable, without status epilepticus; E07.9 Disorder of thyroid, unspecified; F41.9 Anxiety disorder, unspecified; E11.22 Type 2 diabetes mellitus with diabetic chronic kidney disease; I12.9 Hypertensive chronic kidney disease with stage 1 through stage 4 chronic kidney disease, or unspecified chronic kidney disease; N18.2 Chronic kidney disease, stage 2 (mild); Z87.891 Personal history of nicotine dependence; Z79.84 Long term (current) use of oral hypoglycemic drugs; Z79.890 Hormone replacement therapy; Z85.41 Personal history of malignant neoplasm of cervix uteri; Z85.43 Personal history of malignant neoplasm of ovary; Z86.73 Personal history of transient ischemic attack (TIA), and cerebral infarction without residual deficits; Z90.13 Acquired absence of bilateral breasts and nipples; Z91.040 Latex allergy status; Z88.1 Allergy status to other antibiotic agents; Z88.8 Allergy status to other drugs, medicaments and biological substances; Z92.21 Personal history of antineoplastic chemotherapy; Z92.3 Personal history of irradiation; Z79.82 Long term (current) use of aspirin; Z79.85 Long-term (current) use of injectable non-insulin antidiabetic drugs; Z79.899 Other long term (current) drug therapy; Z17.1 Estrogen receptor negative status [ER-]

== ENCOUNTER → 2023-01-30 | Outpatient (CLI) | payer MEDICARE, OTHER ==
--- NOTE | 2023-01-30 09:03 | P.PN ---
Progress Note - Text Progress Note Date: 01/30/23 01-30-23 The patient underwent a bilateral mastectomy in [id number]. There was no evidence of residual cancer, pathology was complete response. On her postoperative visit of [id number] she was noted to have a fever and sent to the emergency room after which she was admitted with sepsis of unknown source. She did well following that until approximately the beginning of January and she was noted to have redness and warmth of the right chest wall. She was seen in the emergency room at [facility] and started on clindamycin. This improved. An ultrasound was done which revealed a complex collection with multiple septations measuring up to 10.4 cm x 5.7 cm. She was not complaining of any fever or chills. The patient had aspiration of the fluid collection in the right chest wall. This was sent for culture no organisms were seen and no growth was noted after 3 days. At that time she was noted to have a fungal infection at an redundant axillary skin fold and was treated with nystatin powder. The patient comes in at this time for repeat evaluation of the chest wall. At this time there is no evidence of any active infection. The area fungal infection has improved. Examination: Lungs: Clear Heart: Regular rate and rhythm Incision: Left chest wall clean and dry no evidence of infection or seroma Right chest wall no evidence of seroma the redundant axillary tissue has improvement of the fungal infection Plan: Follow up in 1 month Follow-up with radiation oncology follow up with medical oncology Continue using nystatin CC: Dr. Barraza
[2023-01-30 09:14] VITALS: BP 128/81; PULSE 92; RESP 17; TEMP 98.7
== END ==
LOC: WWCWWP 08:43
PROVIDERS: ATTEND Surgery
DX: Z90.13 Acquired absence of bilateral breasts and nipples (principal); I49.9 Cardiac arrhythmia, unspecified; Z91.040 Latex allergy status; Z91.09 Other allergy status, other than to drugs and biological substances; Z88.3 Allergy status to other anti-infective agents; Z79.82 Long term (current) use of aspirin; Z79.899 Other long term (current) drug therapy; Z87.891 Personal history of nicotine dependence

== ENCOUNTER → 2023-03-07 | Outpatient (CLI) | payer MEDICARE, OTHER ==
[2023-03-07 09:35] VITALS: BP 128/75; PULSE 69; RESP 18; TEMP 98
--- NOTE | 2023-03-07 09:49 | P.PN ---
Subjective Progress Note Date: 03/07/23 01/17/23 stage II left breast invasive ductal cancer left breast stage II invasive ductal cancer/recurrent vs new primary 03-21-22 Candy is a 62 year old white female seen in consultation for Dr. Bolton regarding a biopsy proven left breast tripple (-) Grade 3 invasive ductal cancer. The Lesion is 2.7 cm on ultrasound. She had a bilateral mammogram on 02-25-22. No lesions of concern were noted in the right breast. She had a left breast ultrasound done on 02-25-22 This showed two lesions in the left breast one measuring o.6 cm and the other 2.3 cm. When reviewed with Dr. Melendez it was felt these were the same lesion. Biopsy of the lesion was (+) for invasive ductal cancer. The patient felt a lump in her breast first in January 2022, it did not change in size. Her last mammogram had been one year prior. She was not complaining of any skin changes or nipple discharge in her breast. She had a left breast lumpectomy and and AND when she was 38. She had radiation and chemotherapy. She did not take any hormone therapy. Case presented at tumor board on 04-05-22 Note Medical oncology reviewed 04-11-22 Dr. Sully Fernández; patient to receive devang- adjuvant chemotherapy Keynote 522 Note radiation oncology reviewed 03-28-[address] results pending port- a -cath to be placed probable mastectomy and SNB after chemotherapy 06-02-21 She started chemotherapy on April 11. She has 1 more treatment of a carboplatin/paclitaxell/keytruda. Since that time the tumor has shrunk so that she can no longer feel it. Her treatment regimen is per keynote 522 protocol: Carboplatin/paclitaxel/keytruda for 4 cycles followed by Adriamycin/cyclophosphamide/Keytruda for 4 cycles 08-30-22 note medical oncology reviewed PET 04-05-22 no evidence of metastatic disease RAD51D clinical [id number]% lifetime risk of breast cancer and increased risk for ovarian cancer; chose not to talk to habilitative interventionist continue chemotherapy; her last treatment on August 14, will have two more treatments of chemotherapy Patient states that the lesion in the left breast is no longer palpable she is not complaining of any lumps masses or nodules of concern in either breast last mammogram 02-25-22- lesion in the left breast noted 10-17-22 Candy this 62-year-old white female who is noted to have a second breast cancer in the left breast. Initially she was diagnosed at age 38 with a left breast cancer which was treated with surgery and radiation therapy, and chemotherapy. She did not have any hormone therapy. Most recently she noted fullness in the left breast and workup revealed a density in the upper quadrant of the left breast. Ultrasound on noted a hypoechoic irregular mass measuring 3 cm in size. Ultrasound core biopsy was performed and this revealed an invasive ductal carcinoma which was ER/TX and HER-2 negative. A PET scan on did not show any metastatic disease. She has subsequently completed neoadjuvant chemotherapy, she is still receiving Keytruda. Had a repeat left breast ultrasound performed on 10-01-22, this revealed near resolution of the tumor. The reason an ultrasound was in rather than an MRI as the patient was unable to travel to get the MRI performed. 09-19-[address] Fernández reviewed 01-17-23 The patient underwent a bilateral mastectomy on 10-29-22. There was no evidence of residual cancer, consistent with pathologic complete response. On her post op visit of 11-21-22 she was noted to have a fever and sent to ER after which she was admited with sepsis of unknown source. She has done well until recently until approximately 1 week ago when she was noted to have redness and warmth of the right chest wall. She was seen in the emergency room at [facility], she was started on clindamycin 150 mg 3 times a day. She states it has improved. An ultrasound was done here on this revealed a complex collection with multiple septations measuring up to 10.4 cm wide by 5.7 cm. She is not complaining of any fever or chills. The redness has resolved. It feels numb and firm to the patient. 03-07-23 The patient is doing well at this time with respect to her chest wall. On her she was noted to have a fungal infection and a skin flap on the right axilla, this was treated with nystatin for fungal infection. The fungal infection had resolved, there is to be starting again and she is not complaining of any fluid on the chest wall. She is complaining of pain in her left knee. She states she has a vertical torn meniscus in the left knee after an injury on . completed neoadjuvant chemotherapy no radiation yet was on uda but held secondary to sepsis in November would like to have tissue removed secondary to repeated fungal infections on the right side CAffiene: 2-3 cups/day nicotien: none chocolate: none BCP: cervical cancer, used them from [age]; she had a partial hysterectomy at 24 Family History: mother: lung cancer, endometiral cancer sister: uterine cancer patient:breast and cervical cancer materal grandfather: SCC Hormonal History: menarche: 11 , breast fed: no, age at first biirth: 23 menopause: hysterectomy at 23, left ovariies Surgical History: gallbaldder left breast lumpectomy and axillary node diesection hysterectomy right knee surgery 2 C-sections tonsillectomy bilateral mastectomy and bilateral axillary node resection Medical History: CVA at 23 (blood clot, ? 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 liver enzymes elevated seizure disorder Social History: nicotine: none alcohol: none drugs: none - Constitutional Constitutional: Denies chills, Denies fever - EENT Eyes: denies blurred vision, denies pain Ears: deny: decreased hearing, tinnitus Ears, nose, mouth and throat: Denies headache, Denies sore throat - Breasts Breasts: bilateral: as per HPI - Cardiovascular Cardiovascular: Denies chest pain, Denies shortness of breath - Respiratory Respiratory: Denies cough - Gastrointestinal Gastrointestinal: Denies abdominal pain, Denies diarrhea, Denies nausea, Denies vomiting - Genitourinary (Female) Genitourinary: Denies dysuria, Denies hematuria - Menstruation Menstruation: Reports post hysterectomy, Reports postmenopausal - Musculoskeletal Comment: arthritis, DJD - Integumentary Comment: 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 LAST SEIZURE ABOUT 30 YEARS AGO. HAD RT CEREBRAL STROKE AGE 23-NO DEFICITS History of Any Multi-Drug Resistant Organisms: None Reported Past Surgical History: Breast Surgery, Section, Cholecystectomy, Hysterectomy, Orthopedic Surgery, Tonsillectomy Additional Past Surgical History / Comment(s): C-SEC X 2. LT BREAST LUMPECTOMY. COLONOSCOPY. RT KNEE SX Past Anesthesia/Blood Transfusion Reactions: No Reported Reaction Past Psychological History: Anxiety Smoking Status: Former smoker Past Alcohol Use History: None Reported Additional Past Alcohol Use History / Comment(s): QUIT SMOKING AT AGE 23 Past Drug Use History: None Reported - Past Family History Daughter(s) Family Medical History: Deep Vein Thrombosis (DVT) Medications and Allergies Home Medications Medication Instructions Recorded Confirmed Type Atorvastatin [Lipitor] 40 mg PO HS 04/21/19 03/21/22 History Fenofibrate Nanocrystallized 145 mg PO HS 04/21/19 03/21/22 History [Fenofibrate] Levothyroxine Sodium 100 mcg PO DAILY 04/21/19 03/21/22 History Losartan Potassium 50 mg PO DAILY 04/21/19 03/21/22 History Multivitamin [Multivitamins Adult 1 each PO DAILY 04/21/19 03/21/22 History Gummies] amLODIPine BESYLATE 10 mg PO DAILY 04/21/19 03/21/22 History clonazePAM 0.5 mg PO DAILY PRN 04/21/19 03/21/22 History levETIRAcetam [Keppra] 750 mg PO Q12HR 04/21/19 03/21/22 History metFORMIN HCL [Glucophage] 500 mg PO BID 04/21/19 03/21/22 History Aspirin [Adult Low Dose Aspirin EC] 81 mg PO DAILY 02/25/22 03/21/22 History Dulaglutide [Trulicity] 0.75 mg SQ WEEKLY 02/25/22 03/21/22 History Allergies Allergy/AdvReac Type Severity Reaction Status Date / Time cephalexin [From Keflex] Allergy Rash/Hives Verified 03/21/22 12:21 etodolac Allergy Unknown Verified 03/21/22 12:21 latex Allergy Rash/Hives Verified 03/21/22 12:21 MARY Inhibitors AdvReac Cough Verified 03/21/22 12:21 Objective - Constitutional General appearance: Present: cooperative - EENT Eyes: Present: EOMI ENT: Present: hearing grossly normal - Neck Neck: Present: normal ROM - Respiratory Respiratory: bilateral: CTA - Cardiovascular Rhythm: regular Heart sounds: normal: S1, S2 - Integumentary Integumentary Comment(s): Area of the left chest wall incision is clean and dry and well-healed Area of the right chest wall incision has some mild erythema at the medial aspect there is a flap at the axilla with a fungal infection at that site and the patient has some fluid which was identified as well on ultrasound. - Psychiatric Psychiatric: Present: A&O x's 3, appropriate affect, intact judgment & insight - Additional findings Additional findings: Chest wall examination: Left chest wall: No evidence of any disease, incision clean and dry well-healed Right chest wall incision clean and dry well-healed, there is redundant axillary tissue and recurrent fungal infection in the folds related to this redundant tissue, Right axilla: No adenopathy of concern Left axilla: No adenopathy of concern Assessment and Plan Assessment: Impression: Stage II triple negative left breast invasive ductal carcinoma; initially had breast cancer at 38 and this was a second primary versus a recurrence on the left side Status post bilateral mastectomy no cancer in the right breast Redundant right axillary tissue with recurrent fungal infections Plan: Follow-up medical oncology Follow-up radiation oncology resection redundant axillary tissue secondary to symptomatic recurrent fungal infections Follow-up orthopedic surgery regarding torn meniscus left knee Clearance Dr. Barraza prior to surgery on the right axilla Nystatin to area of concern prior to surgical intervention CC: Dr. Barraza
== END ==
LOC: WWCWWP 08:54
PROVIDERS: ATTEND Surgery
DX: C50.912 Malignant neoplasm of unspecified site of left female breast (principal); E11.9 Type 2 diabetes mellitus without complications; E78.5 Hyperlipidemia, unspecified; I10 Essential (primary) hypertension; B37.89 Other sites of candidiasis; G40.909 Epilepsy, unspecified, not intractable, without status epilepticus; Z79.84 Long term (current) use of oral hypoglycemic drugs; Z85.41 Personal history of malignant neoplasm of cervix uteri; Z85.43 Personal history of malignant neoplasm of ovary; Z86.73 Personal history of transient ischemic attack (TIA), and cerebral infarction without residual deficits; Z87.891 Personal history of nicotine dependence; Z90.13 Acquired absence of bilateral breasts and nipples; Z92.3 Personal history of irradiation; Z92.21 Personal history of antineoplastic chemotherapy; Z79.85 Long-term (current) use of injectable non-insulin antidiabetic drugs; Z79.899 Other long term (current) drug therapy; Z88.1 Allergy status to other antibiotic agents; Z91.040 Latex allergy status; Z88.8 Allergy status to other drugs, medicaments and biological substances; Z79.82 Long term (current) use of aspirin; Z17.1 Estrogen receptor negative status [ER-]